=== PATIENT | female | born 1930 | race Caucasian/White ===

== ENCOUNTER 2016-09-12 07:40 | Emergency (ER) | payer MEDICARE, OTHER ==
--- OUTSIDE RECORDS SUMMARY | 2016-09-12 08:17 | XMS REPORT | Continuity of Care Document ---
:1930 Author Organization [facility] ([facility]) Address [address] [place] [address] Phone [phone] Care Team Providers Name Role Phone Ajit Steinberg Primary Care Provider [phone] Source Comments This disclosure is being made pursuant to the Care Everywhere program, applicable federal and state laws, and may not contain all informaitonavailable regarding this patient.[facility] ([facility]) Active Allergies and Adverse Reactions Allergen Noted Date Severity Reactions Comments Sulfa (Sulfonamide Antibiotics) 06/06/2012 OTHER "goes out of head" Current Medications Prescription Sig. Disp. Refills Start Date End Date Status aspirin 81 mg tablet Take 81 mg by mouth Active daily. PEG 400-Propylene Glycol Instill onto the Active (SYSTANE, PF,) 0.4-0.3 % eye. Dpet fluocinoNIDE 0.05 % apply topically 2 Active topical cream times daily. loratadine 10 mg cap Take by mouth. Active hydrOXYzine HCl 25 mg Take 25 mg by mouth Active tablet at bedtime as needed. ASPIRIN/ACETAMINOPHEN/CA Take by mouth. Active FFEINE (EXCEDRIN MIGRAINE PO) omeprazole 40 mg Take 40 mg by mouth Active extended release capsule daily. metoPROLol Take 1 Tab by mouth Active tartrate-hydrochlorothia 2 times daily. zide 50-25 mg per tablet nitroglycerin 0.[address] 0.4 mg under Active tablet the tongue every 5 minutes as needed. carbamide peroxide 5 Drops as needed. Active (DEBROX) 6.5 % otic solution Miconazole Nitrate by Apply externally Active (ZEASORB AF) 2 % GlAl route. rosuvastatin (CRESTOR) Take 10 mg by mouth Active 10 mg tablet every evening. escitalopram 10 mg Take 10 mg by mouth Active tablet daily. ALPRAZolam 0.25 mg Take 0.25 mg by Active tablet mouth 2 times daily as needed. lisinopril 20 mg tablet Take 20 mg by mouth Active daily. Zinc Oxide (DESITIN) 13 by Apply externally Active % Crea route. glipiZIDE 2.5 mg XL Take 2.5 mg by mouth Active tablet daily. Indications: TYPE 2 DIABETES MELLITUS prednisoLONE acetate 1 % instill 1-2 Drops 10 mL 2 09/03/2013 Active ophthalmic suspension onto the right eye 4 times daily. Indications: SEVERE OCULAR INFLAMMATION, cystoid macular edema ketorolac 0.5 % instill 1 Drop onto 5 mL 3 09/03/2013 Active ophthalmic solution the right eye 4 times daily. Indications: cystoid macular edema Active Problems Problem Noted Date Pseudophakia, both eyes 09/03/2013 History of retinopathy of prematurity 09/03/2013 Diabetes mellitus 09/03/2013 Vitreomacular traction 09/03/2013 Diabetes mellitus, type 2 06/10/2012 Overview: No retinopathy Resolved Problems Problem Noted Date Resolved Date Vitreomacular traction syndrome 09/03/2013 09/06/2013 Social History Tobacco Use Types Packs/Day Years Used Date Never Smoker Alcohol Use Drinks/Week oz/Week Comments No Plan of Care Health Maintenance Due Date Last Done Comments Hepatitis B Vaccine (1 of 3 - Primary Series) 1930 Tdap Vaccine 1941 DIABETIC: Cholesterol 1950 Diabetic: Hdl 1950 DIABETIC: Hemoglobin A1C 1950 Diabetic: Ldl 1950 DIABETIC: Microalbumin 1950 DIABETIC: Triglycerides 1950 Td Vaccine 1950 Colonoscopy 1982 Zoster Vaccine 1992 Osteoporosis Screening (DXA Bone Density) 1997 Pneumococcal Vaccine (1 of 2 - PCV13) 1997 DIABETIC: Foot Exam 07/19/2012 DIABETIC: Retinal Eye Exam 07/19/2012 Influenza Vaccine: Seasonal (#1) 02/09/2016 Results from Last 3 Months Not on file
--- OUTSIDE RECORDS SUMMARY | 2016-09-12 08:18 | XMS REPORT | Summary of Care ---
:1930 Author Organization [facility] Address [address] [place] [address] Care Team Providers Name Role Phone Tye Armendariz Primary Care Physician Encounter Date(s): 07/23/16 - 07/23/16 [facility], [address] [place], [place] [address] Discharge Diagnosis: At risk of UTI (urinary tract infection) Discharge Diagnosis: Dysuria Discharge Disposition: 01 Discharged to Home or Self Care Attending Physician: Tye Armendariz MD Referring Physician: Tye Armendariz MD Vital Signs Most recent to oldest [Reference Range]: 1 Temperature Temporal Artery [36.0-38.0 DegC] 36.5 DegC (07/23/16 11:12 AM) Blood Pressure [90-130/60-90 mmHg] 138/86mmHg *HI* (07/23/16 11:12 AM) Mean Arterial Pressure, Cuff 103 mmHg (07/23/16 11:12 AM) Weight Dosing 77.2 kg (07/23/16 11:12 AM) Weight Measured 77.2 kg (07/23/16 11:12 AM) Problem List Condition Effective Dates Status Health Status Informant Anxiety(Confirmed) Active CKD stage 3(Confirmed) Active Diabetes mellitus type 2(Confirmed) Active GERD - Gastro-esophageal reflux Active disease(Confirmed) Hyperlipidemia(Confirmed) Active Hypertension(Confirmed) Active Proteinuria(Confirmed) Active Allergies, Adverse Reactions, Alerts Substance Reaction Severity Status sulfa drugs Confused Active Medications acetaminophen 500 mg oral tablet 2 tab(s), Oral, q4hr, PRN for pain, # 120 tab(s), 0 Refill(s), Start Date: 11/15 8:01:00 CDT Start Date: 11/15/14 Stop Date: 11/18/14 Status: Completedacetaminophen 500 mg oral tablet 1-2 tab, Oral, q4hr, PRN for pain, # 60 tab(s), 0 Refill(s), Start Date: 10:59:00 CDT Start Date: 05/07/15 Status: OrderedAleve 220 mg oral tablet 1 tab(s), Oral, q8hr interval, PRN for pain, # 30 tab(s), 0 Refill(s), Start Date: 07/02/14 14:29:00 VESSEL SLAGMAN Start Date: 07/02/14 Stop Date: 08/13/14 Status: Discontinuedaspirin 81 mg oral tablet 1 tab(s), Oral, Daily, # 30 tab(s), 0 Refill(s), Start Date: 07/02/14 14:29:00 VESSEL SLAGMAN Start Date: 07/02/14 Status: OrderedbusPIRone 7.5 mg oral tablet 1 tab(s), Oral, BID, # 90 tab(s), 0 Refill(s), Start Date: 07/02/14 14:29:00 VESSEL SLAGMAN Start Date: 07/02/14 Stop Date: 01/06/15 Status: Completedcholecalciferol 1000 intl units oral capsule 1 cap(s), Oral, Daily, # 75 cap(s), 0 Refill(s), Start Date: 10/28/14 13:52:00 CDT, Pharmacy: [place], [place] Start Date: 10/28/14 Status: Orderedciprofloxacin 250 mg oral tablet 1 tab(s), Oral, q12hr interval, # 6 tab(s), 0 Refill(s), Start Date: 09/09/14 10 :24:00 VESSEL SLAGMAN, Pharmacy: [place], [place] Start Date: 09/09/14 Stop Date: 11/08/14 Status: Completedciprofloxacin 250 mg oral tablet 1 tab(s), Oral, q12hr interval, # 6 tab(s), 0 Refill(s), Start Date: 09/02/14 12 :44:00 VESSEL SLAGMAN Start Date: 09/02/14 Stop Date: 09/04/14 Status: Completedciprofloxacin 250 mg oral tablet 1 tab(s), Oral, q12hr interval, # 6 tab(s), 0 Refill(s), Start Date: 11/18/14 11 :58:00 CDT Start Date: 11/18/14 Stop Date: 11/18/14 Status: CompletedCrestor 10 mg oral tablet 1 tab(s), Oral, Daily, # 30 tab(s), 0 Refill(s), Start Date: 07/02/14 14:30:00 VESSEL SLAGMAN Start Date: 07/02/14 Status: Orderedergocalciferol 50,000 intl units (1.25 mg) oral capsule 1 cap(s), Oral, qWeek, X 8 week(s), # 8 cap(s), 0 Refill(s), Start Date: 13:52:00 VESSEL SLAGMAN, Pharmacy: [place], [place] Start Date: 08/26/14 Stop Date: 10/21/14 Status: CompletedExcedrin Extra Strength 1-2 tab(s), Oral, q6hr interval, PRN pain mild 1-3, 0 Refill(s), Start Date: 11:01:00 CDT Start Date: 05/07/15 Status: OrderedExcedrin Tension Headache Caplet 500 mg-65 mg oral tablet 1-2 tab(s), Oral, Daily, 0 Refill(s), Start Date: 07/02/14 14:31:00 VESSEL SLAGMAN Start Date: 07/02/14 Stop Date: 08/13/14 Status: DiscontinuedGlipiZIDE XL 2.5 mg oral tablet, extended release 1 tab(s), Oral, Daily, # 30 tab(s), 0 Refill(s), Start Date: 07/02/14 14:32:00 VESSEL SLAGMAN Start Date: 07/02/14 Status: Orderedhydrochlorothiazide 25 mg oral tablet 0.5 tab(s), Oral, Daily, # 30 tab(s), 0 Refill(s), Start Date: 07/02/14 14:33: 00 VESSEL SLAGMAN Start Date: 07/02/14 Stop Date: 05/07/15 Status: CompletedhydrOXYzine hydrochloride 25 mg oral tablet 1 tab(s), Oral, QID, PRN for itching, # 40 tab(s), 0 Refill(s), Start Date: 14:33:00 VESSEL SLAGMAN Start Date: 07/02/14 Stop Date: 08/30/14 Status: DiscontinuedLexapro 20 mg oral tablet 0.5 tab(s), Oral, Daily, # 30 tab(s), 0 Refill(s), Start Date: 07/02/14 14:34: 00 VESSEL SLAGMAN Start Date: 07/02/14 Stop Date: 07/23/16 Status: Completedlisinopril 20 mg oral tablet 1 tab(s), Oral, Daily, # 90 tab(s), 0 Refill(s), Start Date: 08/13/14 11:13:00 VESSEL SLAGMAN, [facility]acy: [facility] [place], [place] Start Date: 08/13/14 Stop Date: 08/14/14 Status: Completedlisinopril 20 mg oral tablet 1 tab(s), Oral, BID, corrected frequency to BID, # 60 tab(s), 3 Refill(s), Start Date: 08/14/14 9:01:10 VESSEL SLAGMAN, Pharmacy: [facility] [place], [place] Start Date: 08/14/14 Stop Date: 01/06/15 Status: Discontinuedlisinopril 40 mg oral tablet 1 tab(s), Oral, Daily, # 30 tab(s), 0 Refill(s), Start Date: 07/02/14 14:34:00 VESSEL SLAGMAN Start Date: 07/02/14 Stop Date: 08/13/14 Status: Discontinuedlisinopril 40 mg oral tablet 1 tab(s), Oral, Daily, # 90 tab(s), 0 Refill(s), Start Date: 01/06/15 11:45:00 CDT, Pharmacy: [facility] [place] [place] Start Date: 01/06/15 Stop Date: 05/07/15 Status: Completedmetoprolol tartrate 50 mg oral tablet 1 tab(s), Oral, BID, # 60 tab(s), 0 Refill(s), Start Date: 07/02/14 14:34:00 VESSEL SLAGMAN Start Date: 07/02/14 Status: Orderednitroglycerin 0.4 mg sublingual tablet 1 tab(s), SL, q5min, PRN for chest pain, # 100 tab(s), 0 Refill(s), Start Date: 07/02/14 14:34:00 VESSEL SLAGMAN Start Date: 07/02/14 Status: OrderedNorco 5 mg-325 mg oral tablet 1 tab(s), Oral, q4hr, PRN for pain, X 3 days, # 18 tab(s), 0 Refill(s), Start Date: 11/18/14 11:58:00 CDT Start Date: 11/18/14 Stop Date: 11/18/14 Status: Completednystatin 1,000,000 units oral capsule 1 cap(s), Oral, BID, # 90 cap(s), 0 Refill(s), Start Date: 01/06/15 11:42:00 CDT Start Date: 01/06/15 Status: Orderednystatin 100,000 units/g topical cream 1 manuel, Topical, BID, PRN rash, # 15 gm, 0 Refill(s), Start Date: 11/15/14 8:03: 00 CDT Start Date: 11/15/14 Stop Date: 11/18/14 Status: Completedomeprazole 40 mg oral delayed release capsule 1 cap(s), Oral, Daily, before a meal, # 30 cap(s), 0 Refill(s), Start Date: 14:35:00 VESSEL SLAGMAN Start Date: 07/02/14 Status: OrderedProbiotic Formula 1 cap(s), Oral, Daily, 0 Refill(s), Start Date: 08/13/14 10:39:00 VESSEL SLAGMAN Start Date: 08/13/14 Stop Date: 07/23/16 Status: CompletedRisperDAL 0.25 mg oral tablet 1 tab(s), Oral, HS, # 30 tab(s), 0 Refill(s), Start Date: 05/07/15 11:02:00 CDT Start Date: 05/07/15 Status: OrderedSystane ophthalmic solution 1 drop(s), OPTH, BID, PRN for dry eyes, # 12 mL, 0 Refill(s), Start Date: 14:35:00 VESSEL SLAGMAN Start Date: 07/02/14 Status: OrderedtraMADol 50 mg oral tablet 2 tab(s), Oral, q6hr interval, PRN abdominal pain, # 30 tab(s), 0 Refill(s), Start Date: 09/02/14 12:44:00 VESSEL SLAGMAN Start Date: 09/02/14 Stop Date: 09/04/14 Status: Completedtrolamine salicylate 10% topical cream 1 manuel, Topical, QID, PRN for pain, # 90 gm, 0 Refill(s), Start Date: 01/06/15 11 :41:00 CDT Start Date: 01/06/15 Status: Orderedtrolamine salicylate 10% topical cream 1 manuel, Topical, QID, PRN for pain, # 90 gm, 0 Refill(s), Start Date: 07/02/14 14 :35:00 VESSEL SLAGMAN Start Date: 07/02/14 Stop Date: 11/18/14 Status: CompletedXanax 0.25 mg oral tablet 1 tab(s), Oral, BID, 0 Refill(s), Start Date: 07/02/14 14:35:00 VESSEL SLAGMAN Start Date: 07/02/14 Status: OrderedZoloft 50 mg oral tablet 1 tab(s), Oral, Daily, # 30 tab(s), 0 Refill(s), Start Date: 07/23/16 11:21:00 VESSEL SLAGMAN Start Date: 07/23/16 Status: Ordered Results No data available for this section Immunizations No data available for this section Procedures Procedure Date Related Diagnosis Body Site Cystoureteroscopy With Lithotripsy (Left)1 11/18/14 Cystoureteroscopy With Lithotripsy (Left)2 09/09/14 Ureteroscopy With Lithotripsy (Left)3 09/02/14 Cataract extraction wrist surgery4 1auto-populated from documented surgical [id number] from documented surgical [id number] from documented surgical [id number] to fracture Social History No data available for this section Assessment and Plan No data available for this section
--- OUTSIDE RECORDS SUMMARY | 2016-09-12 08:18 | XMS REPORT | Summary of Care ---
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 Discharge Diagnosis: Hypertension Discharge Diagnosis: Hypokalemia Discharge Disposition: 01 Discharged to Home or Self Care Attending Physician: Momo Root MD Referring Physician: Momo Root MD Vital Signs Most recent to oldest [Reference Range]: 1 2 Temperature Temporal Artery [36.0-38.0 DegC] 36.3 DegC (08/13/16 11:13 AM) Peripheral Pulse Rate [60-100 bpm] 68 bpm (08/13/16 11:13 AM) Respiratory Rate [12-20 br/min] 20 br/min 62 br/min (08/13/16 11:18 AM) *>HHI* (08/13/16 11:13 AM) Blood Pressure [90-130/60-90 mmHg] 96/62mmHg (08/13/16 11:13 AM) Mean Arterial Pressure, Cuff 73 mmHg (08/13/16 11:13 AM) Most recent to oldest [Reference Range]: 1 2 Height/Length Measured 157.0 cm (08/13/16 11:13 AM) Weight Dosing 75.6 kg (08/13/16 11:13 AM) Weight Measured 75.6 kg (08/13/16 11:13 AM) BSA Measured 1.77 m2 (08/13/16 11:13 AM) Body Mass Index Measured 30.67 kg/m2 (08/13/16 11:13 AM) Problem List Condition Effective Dates Status [...] tab(s), 0 Refill(s), Start Date: 07/02/14 14:29:00 STEM MOUNTER Start Date: 07/02/14 Stop Date: 08/13/14 Status: Discontinuedaspirin 81 mg oral tablet 1 tab(s), Oral, Daily, # 30 tab(s), 0 Refill(s), Start Date: 07/02/14 14:29:00 [facility] MOUNTER Start Date: 07/02/14 Status: OrderedbusPIRone 7.5 mg oral tablet 1 tab(s), Oral, BID, # 90 tab(s), 0 Refill(s), Start Date: 07/02/14 14:29:00 [facility] MOUNTER Start Date: 07/02/14 Stop Date: 01/06/15 Status: Completedcholecalciferol 1000 intl units oral capsule 1 cap(s), Oral, Daily, # 75 cap(s), 0 Refill(s), Start Date: 10/28/14 13:52:00 CDT, Pharmacy: [facility], [place] Start Date: 10/28/14 Status: Orderedciprofloxacin 250 mg oral tablet 1 tab(s), Oral, q12hr interval, # 6 tab(s), 0 Refill(s), Start Date: 09/09/14 10 :24:00 STEM MOUNTER, Pharmacy: [facility] [place], [place] Start Date: 09/09/14 Stop Date: 11/08/14 Status: Completedciprofloxacin 250 mg oral tablet 1 tab(s), Oral, q12hr interval, # 6 tab(s), 0 Refill(s), Start Date: 09/02/14 12 :44:00 STEM MOUNTER Start Date: 09/02/14 Stop Date: 09/04/14 Status: Completedciprofloxacin 250 mg oral tablet 1 tab(s), Oral, q12hr interval, # 6 tab(s), 0 Refill(s), Start Date: 11/18/14 11 :58:00 CDT Start Date: 11/18/14 Stop Date: 11/18/14 Status: CompletedCrestor 10 mg oral tablet 1 tab(s), Oral, Daily, # 30 tab(s), 0 Refill(s), Start Date: 07/02/14 14:30:00 STEM MOUNTER Start Date: 07/02/14 Status: Orderedergocalciferol 50,000 intl units (1.25 mg) oral capsule 1 cap(s), Oral, qWeek, X 8 week(s), # 8 cap(s), 0 Refill(s), Start Date: 13:52:00 STEM MOUNTER, Pharmacy: [facility] [place], [place] Start Date: 08/26/14 Stop Date: 10/21/14 Status: CompletedExcedrin Extra Strength 1-2 tab(s), Oral, q6hr interval, PRN pain mild 1-3, 0 Refill(s), Start Date: 11:01:00 CDT Start Date: 05/07/15 Status: OrderedExcedrin Tension Headache Caplet 500 mg-65 mg oral tablet 1-2 tab(s), Oral, Daily, 0 Refill(s), Start Date: 07/02/14 14:31:00 STEM MOUNTER Start Date: 07/02/14 Stop Date: 08/13/14 Status: DiscontinuedGlipiZIDE XL 2.5 mg oral tablet, extended release 1 tab(s), Oral, Daily, # 30 tab(s), 0 Refill(s), Start Date: 07/02/14 14:32:00 STEM MOUNTER Start Date: 07/02/14 Status: Orderedhydrochlorothiazide 25 mg oral tablet 0.5 tab(s), Oral, Daily, # 30 tab(s), 0 Refill(s), Start Date: 07/02/14 14:33: 00 [facility] MOUNTER Start Date: 07/02/14 Stop Date: 05/07/15 Status: CompletedhydrOXYzine hydrochloride 25 mg oral tablet 1 tab(s), Oral, QID, PRN for itching, # 40 tab(s), 0 Refill(s), Start Date: 14:33:00 STEM MOUNTER Start Date: 07/02/14 Stop Date: 08/30/14 Status: DiscontinuedLexapro 20 mg oral tablet 0.5 tab(s), Oral, Daily, # 30 tab(s), 0 Refill(s), Start Date: 07/02/14 14:34: 00 [facility]OUNTER Start Date: 07/02/14 Stop Date: 07/23/16 Status: Completedlisinopril 20 mg oral tablet 1 tab(s), Oral, Daily, # 90 tab(s), 0 Refill(s), Start Date: 08/13/14 11:13:00 STEM MOUNTER, Pharmacy: [place], [place] Start Date: 08/13/14 Stop Date: 08/14/14 Status: Completedlisinopril 20 mg oral tablet 1 tab(s), Oral, BID, corrected frequency to BID, # 60 tab(s), 3 Refill(s), Start Date: 08/14/14 9:01:10 STEM MOUNTER, Pharmacy: [place], [place] Special Instructions: corrected frequency to BID Start Date: 08/14/14 Stop Date: 01/06/15 Status: Discontinuedlisinopril 40 mg oral tablet 1 tab(s), Oral, Daily, # 30 tab(s), 0 Refill(s), Start Date: 07/02/14 14:34:00 STEM MOUNTER Start Date: 07/02/14 Stop Date: 08/13/14 Status: Discontinuedlisinopril 40 mg oral tablet 1 tab(s), Oral, Daily, # 90 tab(s), 0 Refill(s), Start Date: 01/06/15 11:45:00 CDT, [place] Start Date: 01/06/15 Stop Date: 05/07/15 Status: Completedmetoprolol tartrate 50 mg oral tablet 1 tab(s), Oral, BID, # 60 tab(s), 0 Refill(s), Start Date: 07/02/14 14:34:00 STEM MOUNTER Start Date: 07/02/14 Status: Orderednitroglycerin 0.4 mg sublingual tablet 1 tab(s), SL, q5min, PRN for chest pain, # 100 tab(s), 0 Refill(s), Start Date: 07/02/14 14:34:00 STEM MOUNTER Start Date: 07/02/14 Status: OrderedNorco 5 mg-325 [...] 30 cap(s), 0 Refill(s), Start Date: 14:35:00 STEM MOUNTER Special Instructions: before a meal Start Date: 07/02/14 Status: Orderedpotassium chloride 20 mEq oral tablet, extended release 1 tab(s), Oral, BID, # 180 tab(s), 3 Refill(s), Start Date: 08/13/16 11:54:00 STEM MOUNTER, [facility] [place] [place] Start Date: 08/13/16 Status: Orderedpotassium chloride 99 mg oral tablet 1 tab(s), Oral, TID, # 50 tab(s), 0 Refill(s), Start Date: 08/11/16 10:55:00 STEM MOUNTER , [facility] [place] [place] Start Date: 08/11/16 Stop Date: 08/13/16 Status: DiscontinuedProbiotic Formula 1 cap(s), Oral, Daily, 0 Refill(s), Start Date: 08/13/14 10:39:00 STEM MOUNTER Start Date: 08/13/14 Stop Date: 07/23/16 Status: CompletedRisperDAL 0.25 mg oral tablet 1 tab(s), Oral, HS, # 30 tab(s), 0 Refill(s), Start Date: 05/07/15 11:02:00 CDT Start Date: 05/07/15 Status: OrderedSystane ophthalmic solution 1 drop(s), OPTH, BID, PRN for dry eyes, # 12 mL, 0 Refill(s), Start Date: 14:35:00 [facility] MOUNTER Start Date: 07/02/14 Status: OrderedtraMADol 50 mg oral tablet 2 tab(s), Oral, q6hr interval, PRN abdominal pain, # 30 tab(s), 0 Refill(s), Start Date: 09/02/14 12:44:00 [facility] MOUNTER Start Date: 09/02/14 Stop Date: 09/04/14 Status: Completedtrolamine salicylate 10% topical cream 1 manuel, Topical, QID, PRN for pain, # 90 gm, 0 Refill(s), Start Date: 01/06/15 11 :41:00 CDT Start Date: 01/06/15 Status: Orderedtrolamine salicylate 10% topical cream 1 manuel, Topical, QID, PRN for pain, # 90 gm, 0 Refill(s), Start Date: 07/02/14 14 :35:00 STEM MOUNTER Start Date: 07/02/14 Stop Date: 11/18/14 Status: CompletedXanax 0.25 mg oral tablet 1 tab(s), Oral, BID, 0 Refill(s), Start Date: 07/02/14 14:35:00 [facility] MOUNTER Start Date: 07/02/14 Status: OrderedZoloft 50 mg oral tablet 1 tab(s), Oral, Daily, # 30 tab(s), 0 Refill(s), Start Date: 07/23/16 11:21:00 [facility] MOUNTER Start Date: 07/23/16 Status: Ordered Results No data available for this section Immunizations No data available for this section Procedures Procedure Date Related Diagnosis Body Site Cystoureteroscopy With Lithotripsy (Left)1 11/18/14 Cystoureteroscopy With Lithotripsy (Left)2 09/09/14 Ureteroscopy With Lithotripsy (Left)3 09/02/14 Cataract extraction wrist surgery4 1auto-populated from documented surgical [id number] from documented surgical [id number] from documented surgical [id number] to fracture Social History No data available for this section Assessment and Plan No data available for this section
--- OUTSIDE RECORDS SUMMARY | 2016-09-12 08:19 | XMS REPORT | Summary of Care ---
:1930 Author Organization [facility] Address [address] [place] [id number]- Care Team Providers Name Role Phone Ajit Steinberg Primary Care Physician Encounter Date(s): 08/13/16 - 08/13/[address] [id number] Discharge Disposition: 01 Discharged to Home or Self Care Attending Physician: Momo Root MD Admitting Physician: Momo Root MD Vital Signs No data available for this section Problem List Condition Effective Dates Status Health [...] tab(s), 0 Refill(s), Start Date: 07/02/14 14:29:00 DRIVE TESTER Start Date: 07/02/14 Stop Date: 08/13/14 Status: Discontinuedaspirin 81 mg oral tablet 1 tab(s), Oral, Daily, # 30 tab(s), 0 Refill(s), Start Date: 07/02/14 14:29:00 DRIVE TESTER Start Date: 07/02/14 Status: OrderedbusPIRone 7.5 mg oral tablet 1 tab(s), Oral, BID, # 90 tab(s), 0 Refill(s), Start Date: 07/02/14 14:29:00 DRIVE TESTER Start Date: 07/02/14 Stop Date: 01/06/15 Status: Completedcholecalciferol 1000 intl units oral capsule 1 cap(s), Oral, Daily, # 75 cap(s), 0 Refill(s), Start Date: 10/28/14 13:52:00 CDT, Pharmacy: [place], [place] Start Date: 10/28/14 Status: Orderedciprofloxacin 250 mg oral tablet 1 tab(s), Oral, q12hr interval, # 6 tab(s), 0 Refill(s), Start Date: 09/09/14 10 :24:00 DRIVE TESTER, Pharmacy: [place], [place] Start Date: 09/09/14 Stop Date: 11/08/14 Status: Completedciprofloxacin 250 mg oral tablet 1 tab(s), Oral, q12hr interval, # 6 tab(s), 0 Refill(s), Start Date: 09/02/14 12 :44:00 DRIVE TESTER Start Date: 09/02/14 Stop Date: 09/04/14 Status: Completedciprofloxacin 250 mg oral tablet 1 tab(s), Oral, q12hr interval, # 6 tab(s), 0 Refill(s), Start Date: 11/18/14 11 :58:00 CDT Start Date: 11/18/14 Stop Date: 11/18/14 Status: CompletedCrestor 10 mg oral tablet 1 tab(s), Oral, Daily, # 30 tab(s), 0 Refill(s), Start Date: 07/02/14 14:30:00 DRIVE TESTER Start Date: 07/02/14 Status: Orderedergocalciferol 50,000 intl units (1.25 mg) oral capsule 1 cap(s), Oral, qWeek, X 8 week(s), # 8 cap(s), 0 Refill(s), Start Date: 13:52:00 DRIVE TESTER, [place] Start Date: 08/26/14 Stop Date: 10/21/14 Status: CompletedExcedrin Extra Strength 1-2 tab(s), Oral, q6hr interval, PRN pain mild 1-3, 0 Refill(s), Start Date: 11:01:00 CDT Start Date: 05/07/15 Status: OrderedExcedrin Tension Headache Caplet 500 mg-65 mg oral tablet 1-2 tab(s), Oral, Daily, 0 Refill(s), Start Date: 07/02/14 14:31:00 DRIVE TESTER Start Date: 07/02/14 Stop Date: 08/13/14 Status: DiscontinuedGlipiZIDE XL 2.5 mg oral tablet, extended release 1 tab(s), Oral, Daily, # 30 tab(s), 0 Refill(s), Start Date: 07/02/14 14:32:00 DRIVE TESTER Start Date: 07/02/14 Status: Orderedhydrochlorothiazide 25 mg oral tablet 0.5 tab(s), Oral, Daily, # 30 tab(s), 0 Refill(s), Start Date: 07/02/14 14:33: 00 DRIVE TESTER Start Date: 07/02/14 Stop Date: 05/07/15 Status: CompletedhydrOXYzine hydrochloride 25 mg oral tablet 1 tab(s), Oral, QID, PRN for itching, # 40 tab(s), 0 Refill(s), Start Date: 14:33:00 DRIVE TESTER Start Date: 07/02/14 Stop Date: 08/30/14 Status: DiscontinuedLexapro 20 mg oral tablet 0.5 tab(s), Oral, Daily, # 30 tab(s), 0 Refill(s), Start Date: 07/02/14 14:34: 00 DRIVE TESTER Start Date: 07/02/14 Stop Date: 07/23/16 Status: Completedlisinopril 20 mg oral tablet 1 tab(s), Oral, Daily, # 90 tab(s), 0 Refill(s), Start Date: 08/13/14 11:13:00 DRIVE TESTER, [facility] [place] Start Date: 08/13/14 Stop Date: 08/14/14 Status: Completedlisinopril 20 mg oral tablet 1 tab(s), Oral, BID, corrected frequency to BID, # 60 tab(s), 3 Refill(s), Start Date: 08/14/14 9:01:10 DRIVE TESTER, [facility] [place] Special Instructions: corrected frequency to BID Start Date: 08/14/14 Stop Date: 01/06/15 Status: Discontinuedlisinopril 40 mg oral tablet 1 tab(s), Oral, Daily, # 30 tab(s), 0 Refill(s), Start Date: 07/02/14 14:34:00 DRIVE TESTER Start Date: 07/02/14 Stop Date: 08/13/14 Status: Discontinuedlisinopril 40 mg oral tablet 1 tab(s), Oral, Daily, # 90 tab(s), 0 Refill(s), Start Date: 01/06/15 11:45:00 CDT, [facility] [place] [place] Start Date: 01/06/15 Stop Date: 05/07/15 Status: Completedmetoprolol tartrate 50 mg oral tablet 1 tab(s), Oral, BID, # 60 tab(s), 0 Refill(s), Start Date: 07/02/14 14:34:00 DRIVE TESTER Start Date: 07/02/14 Status: Orderednitroglycerin 0.4 mg sublingual tablet 1 tab(s), SL, q5min, PRN for chest pain, # 100 tab(s), 0 Refill(s), Start Date: 07/02/14 14:34:00 DRIVE TESTER Start Date: 07/02/14 Status: OrderedNorco 5 mg-325 [...] 30 cap(s), 0 Refill(s), Start Date: 14:35:00 DRIVE TESTER Special Instructions: before a meal Start Date: 07/02/14 Status: Orderedpotassium chloride 20 mEq oral tablet, extended release 1 tab(s), Oral, BID, # 180 tab(s), 3 Refill(s), Start Date: 08/13/16 11:54:00 DRIVE TESTER, [facility]acy: [facility] [place], [place] Start Date: 08/13/16 Status: Orderedpotassium chloride 99 mg oral tablet 1 tab(s), Oral, TID, # 50 tab(s), 0 Refill(s), Start Date: 08/11/16 10:55:00 DRIVE TESTER , Pharmacy: [facility] [place] [place] Start Date: 08/11/16 Stop Date: 08/13/16 Status: DiscontinuedProbiotic Formula 1 cap(s), Oral, Daily, 0 Refill(s), Start Date: 08/13/14 10:39:00 DRIVE TESTER Start Date: 08/13/14 Stop Date: 07/23/16 Status: CompletedRisperDAL 0.25 mg oral tablet 1 tab(s), Oral, HS, # 30 tab(s), 0 Refill(s), Start Date: 05/07/15 11:02:00 CDT Start Date: 05/07/15 Status: OrderedSystane ophthalmic solution 1 drop(s), OPTH, BID, PRN for dry eyes, # 12 mL, 0 Refill(s), Start Date: 14:35:00 DRIVE TESTER Start Date: 07/02/14 Status: OrderedtraMADol 50 mg oral tablet 2 tab(s), Oral, q6hr interval, PRN abdominal pain, # 30 tab(s), 0 Refill(s), Start Date: 09/02/14 12:44:00 DRIVE TESTER Start Date: 09/02/14 Stop Date: 09/04/14 Status: Completedtrolamine salicylate 10% topical cream 1 manuel, Topical, QID, PRN for pain, # 90 gm, 0 Refill(s), Start Date: 01/06/15 11 :41:00 CDT Start Date: 01/06/15 Status: Orderedtrolamine salicylate 10% topical cream 1 manuel, Topical, QID, PRN for pain, # 90 gm, 0 Refill(s), Start Date: 07/02/14 14 :35:00 DRIVE TESTER Start Date: 07/02/14 Stop Date: 11/18/14 Status: CompletedXanax 0.25 mg oral tablet 1 tab(s), Oral, BID, 0 Refill(s), Start Date: 07/02/14 14:35:00 DRIVE TESTER Start Date: 07/02/14 Status: OrderedZoloft 50 mg oral tablet 1 tab(s), Oral, Daily, # 30 tab(s), 0 Refill(s), Start Date: 07/23/16 11:21:00 DRIVE TESTER Start Date: 07/23/16 Status: Ordered Results Patient Viewable Results Most recent to oldest [Reference Range]: 1 WBC [4.8-10.8 thou/mm3] 11.3 thou/mm3 *HI* (08/13/16 10:53 AM) RBC [4.20-5.40 Mil/mm3] 4.15 Mil/mm3 *LOW* (08/13/16 10:53 AM) Hgb [12.0-16.0 g/dL] 12.6 g/dL (08/13/16 10:53 AM) Hct [37.0-47.0 %] 36.6 % *LOW* (08/13/16 10:53 AM) MCV [80.0-94.0 fL] 88.2 fL (08/13/16 10:53 AM) MCH [25.0-38.0 pg/cell] 30.4 pg/cell (08/13/16 10:53 AM) MCHC [31.0-37.0 g/dL] 34.4 g/dL (08/13/16 10:53 AM) RDW [1.0-48.0 fL] 50.5 fL *HI* (08/13/16 10:53 AM) Platelet [130-400 thou/mm3] 343 thou/mm3 (08/13/16 10:53 AM) Neutrophils % Auto [50.0-75.0 %] 56.7 % (08/13/16 10:53 AM) Immature Granulocyte Auto [0.1-2.0 %] 0.3 % (08/13/16 10:53 AM) Lymphocytes % Auto [15.0-41.0 %] 31.8 % (08/13/16 10:53 AM) Monocytes % Auto [2.0-10.0 %] 6.9 % (08/13/16 10:53 AM) Eosinophils % Auto [0.0-6.0 %] 3.9 % (08/13/16 10:53 AM) Basophil % Auto [0.0-1.0 %] 0.4 % (08/13/16 10:53 AM) Neutrophils Absolute [1.5-5.9 thou/mm3] 6.4 thou/mm3 *HI* (08/13/16 10:53 AM) Immature Gran Absolute [0.01-0.03 thou/mm3] 0.03 thou/mm3 (08/13/16 10:53 AM) Lymphocytes Absolute [1.5-4.0 thou/mm3] 3.6 thou/mm3 (08/13/16 10:53 AM) Monocytes Absolute [0.0-0.9 thou/mm3] 0.8 thou/mm3 (08/13/16 10:53 AM) Eosinophil Absolute [0.0-0.7 thou/mm3] 0.4 thou/mm3 (08/13/16 10:53 AM) Basophil Absolute [0.0-0.2 thou/mm3] 0.0 thou/mm3 (08/13/16 10:53 AM) Sodium Lvl [135-144 mEq/L] 143 mEq/L (08/13/16 10:53 AM) Potassium Lvl [3.3-4.8 mEq/L] 2.4 mEq/L1 *CRIT* (08/13/16 10:53 AM) Chloride Lvl [98-107 mEq/L] 99 mEq/L (08/13/16 10:53 AM) Bicarbonate Lvl [22-30 mmol/L] 30 mmol/L (08/13/16 10:53 AM) Anion Gap [10.0-20.0] 16.4 (08/13/16 10:53 AM) Glucose Lvl [70-108 mg/dL] 146 mg/dL *HI* (08/13/16 10:53 AM) BUN [7-21 mg/dL] 12 mg/dL (08/13/16 10:53 AM) Creatinine Lvl [0.50-1.20 mg/dL] 1.50 mg/dL *HI* (08/13/16 10:53 AM) BUN/Creat Ratio 8.0 *NA* (08/13/16 10:53 AM) eGFR AA [>=60] 40 *LOW* (08/13/16 10:53 AM) eGFR MATTHEW [>=60] 33 *LOW* (08/13/16 10:53 AM) Calcium Lvl [8.6-10.2 mg/dL] 8.7 mg/dL (08/13/16 10:53 AM) PTH, Intact [14-72 pg/mL] 576 pg/mL *HI* (08/13/16 10:53 AM) Vitamin D 25 OH [20-100 ng/mL] 26 ng/mL (08/13/16 10:53 AM) Albumin Lvl [3.5-5.2 g/dL] 3.5 g/dL (08/13/16 10:53 AM) Magnesium Lvl [1.6-2.4 mg/dL] 1.8 mg/dL (08/13/16 10:55 AM) Phosphorus Lvl [2.7-4.5 mg/dL] 2.0 mg/dL *LOW* (08/13/16 10:53 AM) FE [50-170 mcg/dL] 82 mcg/dL (08/13/16 10:53 AM) Iron Binding Capacity, Total [228-428 mcg/dL] 239 mcg/dL (08/13/16 10:53 AM) % Iron Saturation [20-50 %] 34 % (08/13/16 10:53 AM) Ferritin Lvl [10-291 ng/mL] 120 ng/mL (08/13/16 10:53 AM) Potassium, Shafer Ur 9.8 mEq/L *NA* (08/13/16 10:55 AM) Total Protein, Urine [1-14 mg/dL] 26 mg/dL *HI* (08/13/16 10:55 AM) Creatinine, Urine 56.5 mg/dL *NA* (08/13/16 10:55 AM) Ur TP/CRE Ratio 460 mg/g *NA* (08/13/16 10:55 AM) Estimated Creatinine Clearance 26.46 mL/min (08/13/16 12:01 PM) UA Color Yellow *NA* (08/13/16 10:55 AM) Urine Clarity Clear *NA* (08/13/16 10:55 AM) Specific [place] [1.000-1.060] 1.008 (08/13/16 10:55 AM) Urine pH [5-8] 7 (08/13/16 10:55 AM) Ketones Negative (08/13/16 10:55 AM) Bilirubin [Negative] Negative (08/13/16 10:55 AM) Urine Protein [Negative] Negative (08/13/16 10:55 AM) Glucose [Negative] Negative (08/13/16 10:55 AM) Urine HGB [Negative] 1+ *ABN* (08/13/16 10:55 AM) Urobilinogen <2.0 *NA* (08/13/16 10:55 AM) Nitrite [Negative] Negative (08/13/16 10:55 AM) Leuk Esterase [Negative] Negative (08/13/16 10:55 AM) UA Ascorbic Acid [Negative] Negative (08/13/16 10:55 AM) Urine WBC [0-5] 0-5 (08/13/16 10:55 AM) Urine RBC [0-2] 0-2 (08/13/16 10:55 AM) Squamous Epi [0-5] 0-5 (08/13/16 10:55 AM) 1Result Comment: Verified Results called to and read back by VEORNICA at 2016 11:52:[address] by Immunizations No data available for this section Procedures Procedure Date Related Diagnosis Body Site Cystoureteroscopy With Lithotripsy (Left)1 11/18/14 Cystoureteroscopy With Lithotripsy (Left)2 09/09/14 Ureteroscopy With Lithotripsy (Left)3 09/02/14 Cataract extraction wrist surgery4 1auto-populated from documented surgical [id number] from documented surgical [id number] from documented surgical [id number] to fracture Social History No data available for this section Assessment and Plan No data available for this section
[2016-09-12 08:31] LABS: Hematocrit 46.3 % (37.0-47.0); Hemoglobin 15.3 gm/dL (12.5-16.0); Mean Cell Volume 91.7 fl (78-100); Mean Corpuscular Hemoglobin 30.3 pg (27-31); Mean Platelet Volume 9.8 fl (6.0-9.5); Platelet Count 357 K/mm3 (150-450); Red Blood Count 5.05 M/mm3 (4.2-5.4); White Blood Count 21.2 K/mm3 (4.0-10.5)
[2016-09-12 08:34] LABS: Total Cells Counted 100
[2016-09-12 08:41] LABS: Prothrombin Time (Patient) 11.2 Seconds (9.4-11.4)
[2016-09-12 08:44] LABS: INR 1.08 INR (0.90-1.10); Partial Thrombolplastin Time 26.6 Seconds (24-32)
[2016-09-12 08:52] LABS: Atypical (Reactive) Lymph 5 % (0-2); Lymphocyte 5 % (20-51); Monocyte 9 % (0-9); Neutrophil 81 % (42-75); Neutrophil # 17.2 K/mm3 (1.3-6.0)
[2016-09-12 08:54] LABS: Platelet Estimate Normal (NORMAL)
[2016-09-12 08:55] LABS: RBC Morphology Normal (NORMAL)
[2016-09-12 09:00] LABS: ALT 31 U/L (19-67); AST 30 U/L (0-48); Albumin * 4.2 gm/dl (3.4-5.0); Alkaline Phosphatase * 191 U/L (50-170); Anion Gap 23.9 mmol/L (6.8-13.8); BUN/Creatinine Ratio 13.7 (9.0-21.6); Bilirubin, Total 0.4 mg/dL (0.0-1.1); Blood Urea Nitrogen 38 mg/dL (3-23); Calcium * 10.5 mg/dL (7.9-10.9); Carbon Dioxide 15.3 mmol/L (24-32.6); Chloride 101 mmol/L (97-106); Glucose * 114 mg/dL (70-110); Sodium 131 mmol/L (132-142); Total Protein 8.7 gm/dL (6.2-8.2); Troponin I Less than 0.017 ng/ml (0.00-0.10)
[2016-09-12 09:02] LABS: Potassium 9.2 mmol/L (3.4-4.6)
[2016-09-12] MEDS ORDERED: SODIUM CHLORIDE IV ONE (09:04)
[2016-09-12] MEDS ORDERED: INSULIN REGULAR, HUMAN 100 UNITS/ML VIAL SC ONE (09:05)
[2016-09-12] MEDS ORDERED: ALBUTEROL SULFATE 2.5 MG/0.5 ML VIAL.NEB IH ONE ×2 (09:05→09:26)
[2016-09-12] MEDS ORDERED: DEXTROSE 50%-WATER 50 ML SYRG IV ONE (09:05)
[2016-09-12] MEDS ORDERED: SODIUM POLYSTYRENE SULFON/SORB 15 G/60 ML BTL PO ONE (09:08)
[2016-09-12] MEDS ORDERED: SODIUM POLYSTYRENE SULFON/SORB 15 G/60 ML BTL ONE (09:15)
[2016-09-12] MEDS ORDERED: DEXTROSE 50%-WATER 50 ML SYRG ONE (09:16)
[2016-09-12] MEDS ORDERED: INSULIN REGULAR, HUMAN 100 UNITS/ML VIAL ONE (09:16)
--- NOTE | 2016-09-12 09:17 | ERNOTE ---
Medical Problem HPI - Narrative Date of Service: 09/12/16 - General Chief Complaint: General Assessment Time Seen by Provider: 09/12/16 08:08 Source: patient, RN/MD, EMS Exam Limitations: physical impairment - Hx of Dementia - Immun/Allergies/Home Medications Immunizations: IMMUNIZATION HX Immunizations Up to Date Yes History of Influenza Vaccine Yes Hx Pneumococcal Vaccination Yes Allergies/Adverse Reactions: Allergies Sulfa (Sulfonamide Antibiotics) Adverse Reaction (Mild, Verified 09/12/16 07:53) MAKES HER "LOOPY" Home Medications: HOME MEDICATIONS Aspirin [Aspirin Chewable] 81 mg PO DAILY 06/25/13 [Last Taken Unknown] Glipizide [Glipizide Xl] 2.5 mg PO DAILY 06/25/13 [Last Taken Unknown] Lisinopril 20 mg PO BID 06/25/13 [Last Taken Unknown] Metoprolol Tartrate [Lopressor] 50 mg PO BID 06/25/13 [Last Taken Unknown] Nitroglycerin 0.4 mg SL Q5M PRN 06/25/13 [Last Taken Unknown] Omeprazole [Prilosec] 40 mg PO DAILY 06/25/13 [Last Taken Unknown] Blood Sugar Diagnostic, Drum [Accu-Chek Compact] 1 each MC DAILY 09/12/14 [Last Taken Unknown] ALPRAZolam [Xanax] 0.25 mg PO BID 11/25/14 [Last Taken Unknown] B.ani/L.aci/L.aminah/L.plan/L.ginette [Probiotic Formula Capsule] 1 each PO DAILY 11/25 [Last Taken Unknown] Cholecalciferol (Vitamin D3) [Vitamin D] 1,000 unit PO DAILY 11/25/14 [Last Taken Unknown] Propylene Glycol/Peg 400 [Systane Liquid Gel Eye Drops] 1 drop OP BID PRN [Last Taken Unknown] Escitalopram Oxalate [Lexapro] 10 mg PO DAILY 09/12/16 [Last Taken Unknown] Rosuvastatin Calcium [Crestor] 10 mg PO DAILY 09/12/16 [Last Taken Unknown] risperiDONE [Risperdal] 0.25 mg PO DAILY 09/12/16 [Last Taken Unknown] - History of Present History Narrative: Patient comes from home by EMS. Patient was found on the ground for an unknown period of time. Patient was reported with LOC. Last time seem well was last night. Patient at the moment is alone with no family or any home day care provider. Patient reported L hip pain on evaluation. Patient with no Hx of Chest Pain. Timing: constant Severity: moderate Modifying Factors - (Improves): Present: other - nothing Modifying Factors - (Worsens): Present: movement - L Hip and Back Area Review of Systems - Review of Systems Constitutional: Present: weakness, malaise. Absent: fever, chills EYE: Present: no symptoms reported ENT: Present: no symptoms reported Respiratory: Present: cough Cardiology: Present: syncope. Absent: chest pain, palpitations, edema, claudication Gastrointestinal/Abdominal: Absent: nausea, vomiting, diarrhea, abdominal pain Genitourinary: Present: no symptoms reported Musculoskeletal: Present: muscle stiffness - Lower Back area, joint pain - L Hip Pain and Mid and Lower Back area Neurological: Present: anxiety, other - Hx of Dementia. Absent: headache, seizure, tremors Endocrine: Present: other - Not reported Hematologic/Lymphatic: Present: no symptoms reported Psych: Present: no symptoms reported All Other Systems: All systems neg except as marked - Patient's Past Medical History Patient History - Medical: Anxiety, Diabetes Type 2, Dementia, Depression, GERD Patient History - Cardiac/Respiratory: Hypertension, Hyperlipidemia Patient History - Cancer: No Hx of Cancer Patient History - Other: None LMP (females 10-50): Menopausal - Social History Living Situations: home Abuse History: No History of abuse Psych History: Hx of Anxiety, Hx of Depression, Current tx/ever been on anti- depressants or anti-anxiety meds Smoking Status: Former smoker Alcohol Use: none Drug Use: none - Immunizations Immunizations Up to Date: Yes Hx Pneumococcal Vaccination: Yes History of Influenza Vaccine: Yes Physical Exam - Physical Exam General Appearance: Present: alert, no apparent distress, anxious. Absent: obese Eye Exam: Normal inspection: bilateral, PERRL: bilateral, EOMI: bilateral Ears, Nose, Throat: Present: normal ENT inspection, dry mucous membranes Neck: Present: normal inspection, nontender, full range of motion Respiratory: Present: no respiratory distress, normal breath sounds, no accessory muscle use, chest nontender, lungs clear Cardiovascular/Chest: Present: regular rate, rhythm, normal peripheral pulses, systolic murmur - 3/6 Gastrointestinal/Abdominal: Present: normal bowel sounds, nontender, nondistended, soft, no organomegaly Back Exam: Present: no CVA tenderness, vertebral tenderness - lower spine, no step offs scoliosis noticed, decreased range of motion, muscle spasm Extremity Exam: Present: normal inspection, normal range of motion, no edema, bony tenderness - L Hip area on movement and on palpations Neurological Exam: Present: alert, oriented - Taken in consideration her Hx of Dementia, normal mood/affect, no motor/sensory deficits, other - GCS: 15/15, NIH Stroke Scale: 0 Skin Exam: Present: normal color, warm/dry Lymphatic Exam: Present: no adenopathy ED Progress - Date and Time Seen: Date and Time: 09/12/16 09:29 Patient at the moment has been found to be septic, dehydration and hyperkalemia. Tx for hyperkalemia has been given. Patient with no Fx no pneumonia, and pending UA. Patient will need nephrology service. Patient will be transfer to a facility with nephrology. 09/12/16 09:40 I had presented case to Dr. Turner at [facility]. Case has been accepted. - Results and Orders Patient's Lab Results:: I have reviewed the patient's lab results. Results and Orders: CBC: Elevated WBC CMP: Renal failure and Hypekalemia, increase BUN and Creat Trop: Negative LA: Elevated UA: - Vital Signs Patient's Vital Signs:: I have reviewed the patient's vital signs. Vital Signs: Vital Signs 09/12/16 07:44 Temperature 36.1 C L Pulse Rate 97 Respiratory 15 Rate Blood Pressure 133/78 O2 Sat by Pulse 95 Oximetry - EKG EKG: NSR, RBBB, other - peaked T waves EKG Comments: HR: 90, QT/QTc: Normal, LAD, LVH - X-Ray X-Ray #1 X-Ray: chest X-ray Comments: No acute process reported by Radiologist X-Ray #2 X-Ray: l-spine X-ray Comments: No Fx reported by Radiologist X-Ray #3 X-Ray: t-spine X-ray Comments: No Fx reported by Radiologist X-Ray #4 X-Ray: pelvis and L hip X-ray Comments: No Fx reported by Radiologist - CT/Ultrasound CT/Ultrasound Narrative: Report by Radiologist: No acute intracranial abnormality identified - Progress/Reassessment Chief Complaint: General Assessment Progress:: Improved - Transfer of Care Expected Disposition: Transfer Departure - Departure Clinical Impression: Dehydration, Hyperkalemia Sepsis Qualifiers: Sepsis type: sepsis due to unspecified organism Qualified Code(s): A41.9 - Sepsis, unspecified organism Protein in urine Qualifiers: Proteinuria type: unspecified Qualified Code(s): R80.9 - Proteinuria, unspecified Disposition: [facility] Condition: Fair
[2016-09-12 09:40] LABS: Urine Bilirubin 1 mg/dl (NEGATIVE); Urine Ketone Negative (NEGATIVE); Urine Nitrite Negative (NEGATIVE); Urine Protein 15 mg/dL (NEGATIVE); Urine Specific Gravity >=1.030 SP.GR. (1.005-1.010); Urine Urobilinogen Normal (NORMAL); Urine pH 5.5 pH (5.0-7.0)
[2016-09-12] MEDS ORDERED: LEVOFLOXACIN/D5W 750 MG/150 ML BAG IV SCH (09:45)
[2016-09-12 10:01] LABS: Urine Appearance Clear; Urine Bacteria None Seen; Urine Blood 10 /ul (NEGATIVE); Urine Color Yellow; Urine RBC TRACE /hpf (0-5); Urine WBC None Seen /hpf (0-5)
[2016-09-12 10:02] LABS: Urine Amorphous Sediment Few - 1+ (NONE-FEW)
[2016-09-12 10:25] VITALS: BP 161/81
== END 2016-09-12 10:43 | disposition short-term general hospital (02) ==
LOC: ER 07:40
DX: E86.0 Dehydration (principal); E87.5 Hyperkalemia; A41.9 Sepsis, unspecified organism; R80.9 Proteinuria, unspecified; F41.8 Other specified anxiety disorders; K21.9 Gastro-esophageal reflux disease without esophagitis; E11.9 Type 2 diabetes mellitus without complications; I10 Essential (primary) hypertension

== ENCOUNTER 2016-11-07 14:39 | Inpatient (IN) | payer MEDICARE, OTHER ==
[2016-11-07 15:08] LABS: Hematocrit 40.4 % (37.0-47.0); Hemoglobin 13.3 gm/dL (12.5-16.0); Mean Cell Volume 90.2 fl (78-100); Mean Corpuscular Hemoglobin 29.7 pg (27-31); Mean Corpuscular Hgb Conc 32.9 g/dl (32-36); Mean Platelet Volume 9.9 fl (6.0-9.5); Neutrophil # 7.6 K/mm3 (1.3-6.0); Neutrophil % 68.3 % (42-75.0); Platelet Count 550 K/mm3 (150-450); Red Blood Count 4.48 M/mm3 (4.2-5.4); Red Cell Distribution Width 13.5 % (11.5-14.0); White Blood Count 11.2 K/mm3 (4.0-10.5)
[2016-11-07 15:18] LABS: Prothrombin Time (Patient) 11.3 Seconds (9.4-11.4)
[2016-11-07 15:19] LABS: INR 1.09 INR (0.90-1.10); Partial Thrombolplastin Time 22.5 Seconds (24-32)
--- NOTE | 2016-11-07 15:23 | ERNOTE ---
Neuro HPI ER Record Presenting Symptoms: facial droop, impaired speech, confusion Time Seen by Provider: 11/07/16 14:44 Source: EMS Exam Limitations: clinical condition Immunizations: IMMUNIZATION HX Immunizations Up to Date Yes History of Influenza Vaccine Yes Hx Pneumococcal Vaccination Yes Allergies/Adverse Reactions: Allergies Allergy/AdvReac Type Severity Reaction Status Date / Time Sulfa (Sulfonamide AdvReac Mild MAKES HER Verified 11/07/16 15:27 Antibiotics) "LOOPY" Home Medications: HOME MEDICATIONS Aspirin [Aspirin Chewable] 81 mg PO DAILY 06/25/13 [Last Taken Unknown] Metoprolol Tartrate [Lopressor] 50 mg PO BID 06/25/13 [Last Taken Unknown] Nitroglycerin 0.4 mg SL Q5M PRN 06/25/13 [Last Taken Unknown] Omeprazole [Prilosec] 40 mg PO DAILY 06/25/13 [Last Taken Unknown] glipiZIDE [Glipizide Xl] 2.5 mg PO DAILY 06/25/13 [Last Taken Unknown] Blood Sugar Diagnostic, Drum [Accu-Chek Compact] 1 each MC DAILY 09/12/14 [Last Taken Unknown] ALPRAZolam [Xanax] 0.25 mg PO BID 11/25/14 [Last Taken Unknown] Propylene Glycol/Peg 400 [Systane Liquid Gel Eye Drops] 1 drop OP BID PRN [Last Taken Unknown] Rosuvastatin Calcium [Crestor] 10 mg PO DAILY 09/12/16 [Last Taken Unknown] risperiDONE [Risperdal] 0.25 mg PO DAILY 09/12/16 [Last Taken Unknown] ALPRAZolam [Xanax] 0.25 mg PO BID 11/07/16 [Last Taken Unknown] Famotidine 20 mg PO HS 11/07/16 [Last Taken Unknown] Furosemide [Lasix] 40 mg PO DAILY 11/07/16 [Last Taken Unknown] Mirtazapine 7.5 mg PO HS 11/07/16 [Last Taken Unknown] Potassium Chloride [K-Dur] 20 meq PO BID 11/07/16 [Last Taken Unknown] Sertraline HCl [Zoloft] 50 mg PO DAILY 11/07/16 [Last Taken Unknown] - History of Present Illness Narrative: Patient presents with right-sided facial droop and expressive aphasia and it appears to be some component of confusion. The last time the patient was seen normal was yesterday afternoon according to the daughter. We now appear to be upwards to 24 hours to the onset of the stroke like symptoms. Last Date Known Well: 11/06/16 Last Time Known Well: 15:00 Onset: cannot confirm onset Severity: moderate - Character of Deficits New weakness: Present: facial (rt) Additional Deficits: Present: impaired speech Baseline Cognition: Present: alert, oriented x 4 Baseline Gait: Present: walks w/o assistance Associated Symptoms: Reports: altered mental status Review of Systems - Review of Systems Constitutional: Present: See HPI EYE: Present: no symptoms reported ENT: Present: no symptoms reported Respiratory: Present: no symptoms reported Cardiology: Present: no symptoms reported Gastrointestinal/Abdominal: Present: no symptoms reported Genitourinary: Present: no symptoms reported Musculoskeletal: Present: no symptoms reported Skin: Present: no symptoms reported Neurological: Present: See HPI Endocrine: Present: no symptoms reported Hematologic/Lymphatic: Present: no symptoms reported Psych: Present: no symptoms reported - Patient's Past Medical History Patient History - Medical: Anxiety, Diabetes Type 2, Dementia, Depression, GERD Patient History - Cardiac/Respiratory: Hypertension, Hyperlipidemia Patient History - Cancer: No Hx of Cancer Patient History - Other: None - Social History Living Situations: alone Abuse History: No History of abuse Psych History: Hx of Anxiety, Hx of Depression, Current tx/ever been on anti- depressants or anti-anxiety meds Alcohol Use: none Drug Use: none - Immunizations Immunizations Up to Date: Yes Hx Pneumococcal Vaccination: Yes History of Influenza Vaccine: Yes Physical Exam - Physical Exam General Appearance: Present: wd/wn, alert, moderate distress Eye Exam: Normal inspection: bilateral, PERRL: bilateral Ears, Nose, Throat: Present: normal ENT inspection, H, normal pharynx Neck: Present: normal inspection, nontender Respiratory: Present: no respiratory distress, normal breath sounds, no accessory muscle use, chest nontender, lungs clear Cardiovascular/Chest: Present: regular rate, rhythm, no murmur, normal peripheral pulses Gastrointestinal/Abdominal: Present: normal bowel sounds, nontender, nondistended, soft, no organomegaly Rectal Exam: Present: deferred Back Exam: Present: normal inspection, normal range of motion Extremity Exam: Present: normal inspection, non-tender, no edema, normal range of motion Neurological Exam: Present: other - patient is somewhat difficult to determine exactly the mental status as her appears to be underlying dementia present. However according to the daughter her mother can normally talk and today she is having expressive aphasia. She does have right-sided facial droop as well which according to the daughter is new also Skin Exam: Present: normal color, warm/dry Lymphatic Exam: Present: no adenopathy ED Progress - Results and Orders Patient's Lab Results:: I have reviewed the patient's lab results. - Vital Signs Patient's Vital Signs:: I have reviewed the patient's vital signs. Vital Signs: Vital Signs 11/07/16 11/07/16 14:44 14:49 Temperature 35.6 C L Pulse Rate 104 H 104 H Respiratory 14 Rate Blood Pressure 106/69 O2 Sat by Pulse 97 Oximetry - EKG EKG: atrial fibrillation - CT/Ultrasound CT/Ultrasound Narrative: Head CT reviewed - Progress/Reassessment Chief Complaint: CerebroVascular Accident Plan - Plan Plan: While the patient under ordinary circumstances could've been a candidate for TPA , because we do not have a clear onset of symptoms where she is no longer a candidate for TPA. Patient is in A. fib with a rapid ventricular response and we will start a Cardizem drip on her to help control the rhythm until such time as we can get an echocardiogram and perhaps she will convert. She was seen here 6 weeks ago and at that time she was in normal sinus rhythm. Departure Clinical Impression: Atrial fibrillation with RVR CVA (cerebral vascular accident) Qualifiers: CVA mechanism: unspecified Qualified Code(s): I63.9 - Cerebral infarction, unspecified - Departure Disposition: [facility] Condition: Fair - Critical Care Total Time (mins): 40 Critical Care: Patient will need to be admitted overnight to the ICU so we can monitor her heart rate and we can get an echocardiogram to make sure we don't have some mural wall thrombus present. Patient has been started on a Cardizem drip to help control her heart rate here in the ED as well.
[2016-11-07 15:24] LABS: Anion Gap 16.7 mmol/L (6.8-13.8); BUN/Creatinine Ratio 15.1 (9.0-21.6); Bilirubin, Total 0.3 mg/dL (0.0-1.1); Calcium * 9.4 mg/dL (7.9-10.9); Carbon Dioxide 24.7 mmol/L (24-32.6); Potassium 4.4 mmol/L (3.4-4.6); Total Protein 7.9 gm/dL (6.2-8.2)
[2016-11-07] MEDS ORDERED: DILTIAZEM HCL 125 MG in DEXTROSE 5 % IN WATER 100 ML IV PRN ×2 (15:34)
[2016-11-07 15:36] LABS: Albumin * 2.8 gm/dl (3.4-5.0)
--- OUTSIDE RECORDS SUMMARY | 2016-11-07 15:42 | XMS REPORT | Continuity of Care Document ---
:1930 Author Organization [facility] ([facility]) Address [address] [place] [address] Phone [phone] Care Team Providers Name Role Phone Ajit Steinberg Primary Care Provider [phone] Source Comments This disclosure is being made pursuant to the Care Everywhere program, applicable federal and state laws, and may not contain all informaitonavailable regarding this patient.[facility] ([facility]) Active Allergies and Adverse Reactions Allergen [...]
--- OUTSIDE RECORDS SUMMARY | 2016-11-07 15:44 | XMS REPORT | Continuity of Care Document ---
:1930 Author Organization [facility] ([facility]) Address [address] [place] [address] Phone [phone] Care Team Providers Name Role Phone Ajit Steinberg Primary Care Provider [phone] Source Comments This disclosure is being made pursuant to the Care Everywhere program, applicable federal and state laws, and may not contain all informaitonavailable regarding this patient.[facility] ([facility]) Active Allergies and Adverse Reactions Allergen Noted [...]
[2016-11-07] MEDS ORDERED: NORMAL SALINE 1,000 ML IV ONE (16:31)
[2016-11-07] MEDS ORDERED: NORMAL SALINE 1,000 ML in NORMAL SALINE 1,000 ML IV ONE (16:32)
[2016-11-07] MEDS: NORMAL SALINE 1,000 ML IV PRN (19:06)
[2016-11-07] MEDS ORDERED: NITROGLYCERIN 0.4 MG/TAB BTL SL PRN (19:57)
[2016-11-07] MEDS: POTASSIUM CHLORIDE 20 MEQ TABLET.SA PO SCH (20:25)
[2016-11-07] MEDS: METOPROLOL TARTRATE 50 MG TABLET PO SCH (20:25)
[2016-11-07] MEDS: FAMOTIDINE 20 MG TABLET PO SCH (20:26)
[2016-11-07] MEDS: ALPRAZolam 0.25 MG TABLET PO SCH (20:26)
--- NOTE | 2016-11-07 21:20 | HP ---
Chief Complaint - Chief Complaint Date of Service: 11/07/16 Time of Service: 20:00 Chief Complaint: aphasia, weakness History of Present Illness: 86 years old female adm to the hospital with reports of aphasia and weakness. Pt is able to follow commands and answer yes/no questions with nodding of the head. Unable to obtain information from patient due to aphasia, secondary information provided to nurse through family members; Who stated pt was recently discharge from the intermediate. She lives alone and could talk before this incident. Earlier today she push her life alert button and EMS found her on her couch confused and aphasic. In ER a-fib RVR, she responded well to IVF, uncertain of onset of s/s, pt is not a candidate for TPA. She is adm inpatient for further evaluation. 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 MRI head, US carotid duplex and Echo pending. - Patient's Past Medical History Patient History - Medical: Anxiety, Diabetes Type 2, Dementia, Depression, GERD , Renal Disease - CKD stage III-IV Patient History - Cardiac/Respiratory: Coronary Heart Disease, Hypertension, Hyperlipidemia, Other - thyroid nodule, kidney stones Patient History - Cancer: No Hx of Cancer Patient History - Surgical Procedures: Urology - cystoscopy Patient History - Other: None - Family History Mother Family History - Medical: , History Unknown - Social History Living Situations: alone Abuse History: No History of abuse Psych History: Hx of Anxiety, Hx of Depression, Current tx/ever been on anti- depressants or anti-anxiety meds Smoking Status: Never smoker Have you smoked in the past 12 months: No Alcohol Use: none Drug Use: none - Immunizations Immunizations Up to Date: Yes Hx Pneumococcal Vaccination: Yes History of Influenza Vaccine: Yes Review Of Systems (GEN) - Review of Systems Generalized/Overall Review: Present: No Symptoms Reported EENTM: Present: No Symptoms Reported Respiratory: Present: No Symptoms Reported Cardiac: Present: No Symptoms Reported Abdominal: Present: No Symptoms Reported Genitourinary: Present: No Symptoms Reported Musculoskeletal: Present: Muscle Pain Neurological: Present: Other - pt unable to atriculate her words secondary to CVA dysarthria Skin: Present: No Symptoms Reported Endocrine: Present: No Symptoms Reported Immunizations: IMMUNIZATION HX Immunizations Up to Date Yes History of Influenza Vaccine Yes Hx Pneumococcal Vaccination Yes Allergies/Adverse Reactions: Allergies Allergy/AdvReac Type Severity Reaction Status Date / Time Sulfa (Sulfonamide AdvReac Mild MAKES HER Verified 11/07/16 17:27 Antibiotics) "LOOPY" Home Medications: HOME MEDICATIONS Aspirin [Aspirin Chewable] 81 mg PO DAILY 06/25/13 [Last Taken Unknown] Metoprolol Tartrate [Lopressor] 50 mg PO BID 06/25/13 [Last Taken Unknown] Nitroglycerin 0.4 mg SL Q5M PRN 06/25/13 [Last Taken Unknown] Omeprazole [Prilosec] 40 mg PO DAILY 06/25/13 [Last Taken Unknown] glipiZIDE [Glipizide Xl] 2.5 mg PO DAILY 06/25/13 [Last Taken Unknown] Blood Sugar Diagnostic, Drum [Accu-Chek Compact] 1 each MC DAILY 09/12/14 [Last Taken Unknown] ALPRAZolam [Xanax] 0.25 mg PO BID 11/25/14 [Last Taken Unknown] Propylene Glycol/Peg 400 [Systane Liquid Gel Eye Drops] 1 drop OP BID PRN [Last Taken Unknown] Rosuvastatin Calcium [Crestor] 10 mg PO DAILY 09/12/16 [Last Taken Unknown] risperiDONE [Risperdal] 0.25 mg PO DAILY 09/12/16 [Last Taken Unknown] ALPRAZolam [Xanax] 0.25 mg PO BID 11/07/16 [Last Taken Unknown] Famotidine 20 mg PO HS 11/07/16 [Last Taken Unknown] Furosemide [Lasix] 40 mg PO DAILY 11/07/16 [Last Taken Unknown] Mirtazapine 7.5 mg PO HS 11/07/16 [Last Taken Unknown] Potassium Chloride [K-Dur] 20 meq PO BID 11/07/16 [Last Taken Unknown] Sertraline HCl [Zoloft] 50 mg PO DAILY 11/07/16 [Last Taken Unknown] Exam - Exam Vital Signs: Vital Signs - Last Taken Temp 36.6 C 11/07/16 19:21 Pulse 103 H 11/07/16 20:25 Resp 16 11/07/16 19:21 BP 96/61 11/07/16 20:25 Pulse Ox 99 11/07/16 19:21 Constitutional: Present: Oriented x3, Cooperative, No distress, Elderly, Obese ENT Exam: Present: moist mucous membranes Eye Exam: bilateral eye: PERRL Neck: Present: full range of motion Back Exam: Present: normal inspection Breasts: Present: Exam deferred Respiratory: Present: chest non-tender, lungs clear, normal breath sounds, no respiratory distress Cardiovascular/Chest: Present: normal peripheral pulses, no chest tenderness, no edema, no gallop, irregularly irregular Peripheral Pulses: dorsalis-pedis (R): 3+, dorsalis-pedis (L): 3+ Abdomen: Present: Normal bowel sounds, soft, nontender, nondistended, no rebound tenderness /Rectal: Present: Exam deferred Extremity: Present: normal range of motion, non-tender, normal inspection, no pedal edema Skin Exam: Present: normal color, warm/dry Lymphatic: Present: no adenopathy Neurologic: Present: oriented x 3, aphasia, facial droop - leftside corner of the mouth, tongue deviated to the left, motor weakness Appearance: Present: appropriate appearance Eye contact: Present: cooperative, other - dysarthria Thoughts: Present: no apparent hallucination Diagnostic Studies: Laboratory Results WBC 11.2 K/mm3 (4.0-10.5) H 11/07/16 15:00 RBC 4.48 M/mm3 (4.2-5.4) 11/07/16 15:00 Hgb 13.3 gm/dL (12.5-16.0) 11/07/16 15:00 Hct 40.4 % (37.0-47.0) 11/07/16 15:00 MCV 90.2 fl (78-100) 11/07/16 15:00 MCH 29.7 pg (27-31) 11/07/16 15:00 MCHC 32.9 g/dl (32-36) 11/07/16 15:00 RDW 13.5 % (11.5-14.0) 11/07/16 15:00 Plt Count 550 K/mm3 (150-450) H 11/07/16 15:00 MPV 9.9 fl (6.0-9.5) H 11/07/16 15:00 Immature Gran % (Auto) 0.40 % (0.001-0.429) 11/07/16 15:00 Immature Gran # (Auto) 0.04 K/mm3 (0.000-0.0310) H 11/07/16 15:00 Neutrophils % 68.3 % (42-75.0) 11/07/16 15:00 Lymphocytes % 20.1 % (20-51) 11/07/16 15:00 Monocytes % 9.3 % (0.0-9) H 11/07/16 15:00 Eosinophils % 1.3 % (0.0-3.0) 11/07/16 15:00 Basophils % 0.6 % (0.0-1.0) 11/07/16 15:00 Nucleated RBC % 0.0 k/mm3 (0-1) 11/07/16 15:00 Neutrophils # 7.6 K/mm3 (1.3-6.0) H 11/07/16 15:00 Lymphocytes # 2.2 k/mm3 (1.5-3.5) 11/07/16 15:00 Monocytes # 1.0 k/mm3 (0.0-1.0) 11/07/16 15:00 Eosinophils # 0.2 k/mm3 (0.0-0.7) 11/07/16 15:00 Absolute Basophils 0.1 k/mm3 (0.0-0.1) 11/07/16 15:00 ESR 88 mm/hr (0-15) H 11/07/16 15:00 PT 11.3 Seconds (9.4-11.4) 11/07/16 15:00 INR (Anticoag Therapy) 1.09 INR (0.90-1.10) 11/07/16 15:00 PTT ([place]) 22.5 Seconds (24-32) L 11/07/16 15:00 Sodium 139 mmol/L (132-142) 11/07/16 15:00 Plasma Sodium 141 mmol/L (130-142) 11/07/16 15:00 Potassium 4.4 mmol/L (3.4-4.6) 11/07/16 15:00 Chloride 102 mmol/L (97-106) 11/07/16 15:00 Carbon Dioxide 24.7 mmol/L (24-32.6) 11/07/16 15:00 Anion Gap 16.7 mmol/L (6.8-13.8) H 11/07/16 15:00 BUN 27 mg/dL (3-23) H 11/07/16 15:00 Creatinine 1.79 mg/dL (0.4-1.4) H 11/07/16 15:00 Est GFR (Non-Af Amer) 29 mL/min (60-130) L 11/07/16 15:00 BUN/Creatinine Ratio 15.1 (9.0-21.6) 11/07/16 15:00 Random Glucose 223 mg/dL (70-110) H 11/07/16 15:00 Calcium 9.4 mg/dL (7.9-10.9) 11/07/16 15:00 Calcium Adj for Albumin 10.0 mg/dL (8.4-10.2) 11/07/16 15:00 Total Bilirubin 0.3 mg/dL (0.0-1.1) 11/07/16 15:00 AST 19 U/L (0-48) 11/07/16 15:00 ALT 23 U/L (19-67) 11/07/16 15:00 Alkaline Phosphatase 138 U/L (50-170) 11/07/16 15:00 Total Protein 7.9 gm/dL (6.2-8.2) 11/07/16 15:00 Albumin 2.8 gm/dl (3.4-5.0) L 11/07/16 15:00 Assessment/Plan - Narrative Narrative: CVA- likely due to new A-fib On adm aphasia and Dysarthria, per ER and nurses report pt was able to talk clearly earlier today base on family reports. 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 Continue to monitor on telemetry 2D-echo pending pt responded well to IVF bolus in ER, continue with IVF as rate is controlled and BP improving Discussed with Dr Pulido Will hold off on Cardizem for now CKD stage III-IV On adm Bun/Cre-->27/1.79 GFR 29 Continue with IVF hydration Diabetes Accu-check AC+HS and low dose SSI Keep NPO for now until speech eval is completed Code status: DNR VTE ppx: GI ppx:pepcid Anticipate discharge to rehab vs home 1-3 days will need extensive speech therapy Time 45 minutes - Assessment/Plan (1) Diabetes Problem: Chronic Qualifiers: Diabetes mellitus type: type 2 (2) Atrial fibrillation with RVR Problem: Acute (3) CVA (cerebral vascular accident) Problem: Acute Qualifiers: CVA mechanism: unspecified Qualified Code(s): I63.9 - Cerebral infarction, unspecified (4) Dehydration Problem: Acute
[2016-11-07] MEDS ORDERED: POLYVINYL ALCOHOL 150 DROP BTL OP PRN (21:47)
[2016-11-08] MEDS: NORMAL SALINE 1,000 ML IV PRN (02:46)
[2016-11-08 06:22] LABS: Anion Gap 14.7 mmol/L (6.8-13.8); BUN/Creatinine Ratio 16.6 (9.0-21.6); Calcium * 8.6 mg/dL (7.9-10.9); Carbon Dioxide 25.1 mmol/L (24-32.6); Estimated Creat Clear 21.9; Potassium 3.8 mmol/L (3.4-4.6)
[2016-11-08] MEDS: PANTOPRAZOLE SODIUM 40 MG TABLET.EC PO SCH (06:54)
[2016-11-08] MEDS: APIXABAN 2.5 MG TABLET PO SCH ×2 (08:37→20:11)
[2016-11-08] MEDS: glipiZIDE 2.5 MG TAB.SR.24H PO SCH (08:38)
[2016-11-08] MEDS: SERTRALINE HCL 50 MG TABLET PO SCH (08:38)
[2016-11-08] MEDS: risperiDONE 0.25 MG TABLET PO SCH (08:38)
[2016-11-08] MEDS: METOPROLOL TARTRATE 50 MG TABLET PO SCH ×2 (08:38→20:14)
[2016-11-08] MEDS: FUROSEMIDE 40 MG TABLET PO SCH (08:38)
[2016-11-08] MEDS: POTASSIUM CHLORIDE 20 MEQ TABLET.SA PO SCH ×2 (08:38→20:11)
[2016-11-08] MEDS: ALPRAZolam 0.25 MG TABLET PO SCH ×2 (08:40→20:11)
[2016-11-08] MEDS: 0.5 NORMAL SALINE 1,000 ML IV PRN ×2 (08:51→20:07)
[2016-11-08] MEDS ORDERED: ROSUVASTATIN CALCIUM 10 MG TABLET PO SCH (09:00)
[2016-11-08] MEDS ORDERED: ASPIRIN 81 MG TAB.CHEW PO SCH (09:00)
[2016-11-08] MEDS ORDERED: POLYVINYL ALCOHOL 150 DROP BTL OP PRN (11:20)
--- NOTE | 2016-11-08 12:26 | PN ---
Subjective - Date and Time Seen Date: 11/08/16 Time: 12:19 Subjective Narrative: Patient is dysarthric. MRI acute to subacute CVA , left precentral gyrus. Objective - Review of Systems Generalized/Overall Review: Reports: No Symptoms Reported EENTM: Reports: No Symptoms Reported Respiratory: Reports: No Symptoms Reported Cardiac: Reports: Palpitations. Denies: Chest Pain Abdominal: Denies: Nausea, Vomiting Genitourinary Symptoms: Denies: Urgency, Frequency Musculoskeletal Complaints: Reports: No Symptoms Reported Neurological: Reports: Other - she knows she has garbled speech - Vitals Vitals: Last Vital Signs Temp 36.6 C 11/08/16 11:19 Pulse 85 11/08/16 11:19 Resp 18 11/08/16 11:19 BP 106/47 11/08/16 11:19 Pulse Ox 94 11/08/16 11:19 - Abnormal Lab Findings Abnormal Lab Findings: Abnormal Lab Results 11/08/16 11/08/16 11/08/16 Range/Units 06:00 06:00 06:00 ESR 79 H (0-15) mm/hr Sodium 147 H (132-142) mmol/L Plasma Sodium 147 H (130-142) mmol/L Chloride 111 H (97-106) mmol/L Anion Gap 14.7 H (6.8-13.8) mmol/L BUN 25 H (3-23) mg/dL Creatinine 1.51 H (0.4-1.4) mg/dL Est GFR (Non-Af Amer) 35 L D (60-130) mL/min Hemoglobin A1c 8.0 H (4.00-6.0) % HDL Cholesterol 27 L (40-60) mg/dL Cholesterol/HDL Ratio 5.0 H (3.3-4.4) mg/dL - Exam Constitutional: Present: Alert, Oriented x3, Cooperative ENT Exam: Present: hearing grossly normal Neck: Present: supple Breasts: Present: Exam deferred Respiratory: Present: decreased breath sounds, No rales, No wheezing Cardiovascular/Chest: Present: no JVD, no murmur, irregularly irregular Abdomen: Present: Normal bowel sounds, soft, nontender, nondistended Extremity: Present: no pedal edema, no calf tenderness Neurologic: Present: other - dysarthric, shallow Right nasolabial fold, tongue devuated slightly to the right Assessment/Plan - Problems/Diagnosis (1) CVA (cerebral vascular accident) Problem: Acute Qualifiers: CVA mechanism: unspecified Qualified Code(s): I63.9 - Cerebral infarction, unspecified Narrative: acute to subacute, left inferior precentral gyrus. PT/OT/ST eval and treat. (2) Atrial fibrillation with RVR Problem: Acute Narrative: new onset. started on eliquis. check Echo. (3) Diabetes Problem: Chronic Qualifiers: Diabetes mellitus type: type 2 Chronic kidney disease stage: stage 3 ( moderate) (4) Chronic renal failure, stage 3 (moderate) Problem: Chronic Narrative: continue with IVF. (5) Dementia Problem: Chronic Qualifiers: Dementia type: Alzheimer's disease Alzheimer's disease onset: late-onset Dementia behavioral disturbance: without behavioral disturbance Qualified Code (s): G30.1 - Alzheimer's disease with late onset; F02.80 - Dementia in other diseases classified elsewhere without behavioral disturbance
[2016-11-08] MEDS ORDERED: oxyCODONE HCL/ACETAMINOPHEN 1 TAB TABLET PO PRN (18:46)
[2016-11-08] MEDS: ROSUVASTATIN CALCIUM 10 MG TABLET PO SCH (20:11)
[2016-11-08] MEDS: FAMOTIDINE 20 MG TABLET PO SCH (20:12)
[2016-11-08] MEDS: ACETAMINOPHEN 325 MG TABLET PO PRN (20:12)
[2016-11-09] MEDS: 0.5 NORMAL SALINE 1,000 ML IV PRN ×2 (06:05→20:11)
[2016-11-09] MEDS: PANTOPRAZOLE SODIUM 40 MG TABLET.EC PO SCH (06:36)
[2016-11-09] MEDS: POTASSIUM CHLORIDE 20 MEQ TABLET.SA PO SCH ×2 (08:53→20:19)
[2016-11-09] MEDS: SERTRALINE HCL 50 MG TABLET PO SCH (08:53)
[2016-11-09] MEDS: METOPROLOL TARTRATE 50 MG TABLET PO SCH ×2 (08:53→20:19)
[2016-11-09] MEDS: risperiDONE 0.25 MG TABLET PO SCH (08:53)
[2016-11-09] MEDS: glipiZIDE 2.5 MG TAB.SR.24H PO SCH (08:53)
[2016-11-09] MEDS: FUROSEMIDE 40 MG TABLET PO SCH (08:53)
[2016-11-09] MEDS: APIXABAN 2.5 MG TABLET PO SCH ×2 (08:53→20:19)
[2016-11-09] MEDS: ALPRAZolam 0.25 MG TABLET PO SCH ×2 (09:01→20:19)
--- NOTE | 2016-11-09 10:03 | PN ---
Subjective - Date and Time Seen Date: 11/09/16 Time: 09:44 Subjective Narrative: doing well. up with one assist. working with therapy today. c/o low back pain from sitting in chair. Objective - Review of Systems Generalized/Overall Review: Reports: Weakness, Fatigue EENTM: Reports: No Symptoms Reported Respiratory: Reports: Shortness of Breath Cardiac: Reports: No Symptoms Reported Abdominal: Reports: No Symptoms Reported Genitourinary Symptoms: Reports: No Symptoms Reported Musculoskeletal Complaints: Reports: Back Pain Neurological: Reports: Weakness Skin: Reports: No Symptoms Reported Endocrine: Reports: No Symptoms Reported Misc: All systems neg except as marked - Vitals Vitals: Last Vital Signs Temp 37.0 C 11/09/16 07:21 Pulse 104 H 11/09/16 08:53 Resp 20 11/09/16 07:21 BP 121/63 11/09/16 08:53 Pulse Ox 98 11/09/16 07:21 - EKG/Xray Findings EKG: atrial fibrillation EKG read: Interp. 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 right leg strength weaker than left. Neurologic: Present: alert, oriented x 3, aphasia, facial droop - right Assessment/Plan Plan Narrative: Atrial fibrillation - likely cause of patient's stroke - currently anticoagulated with Eliquis - Ct of the head non acute on 11/08/16 - MRI of the brain (11/08/16) showed acute to subacute lacunar infarct in the inferior precentral gyrus - patient with right sided defect, aphasia and dysphasia - echo with bubble study currently pending. - heart rate controlled on metoprolol - monitor on tele with vital signs q 4 hours CVA - CT of the head (11/08/16) non-acute - MRI of the brain (11/08/16) acute to subacute lacunar infarct in the inferior precentral gyrus - anticoagulated with Eliquis - currently with right sided defect, aphasia and dysphasia - PT/OT/speech therapy consulting - ambulate TID and up to chairs for meals - echo with bubble study pending. - carotid US with non significant stenosis bilat. ' - will need SNF at discharge. dementia - vascular dementia - repeat MMSE today to compare - will need SNF at discharge, is not safe to live at home alone. CRF - Stage 3 - responding to IV fluids - check daily weight / strict I&Os to monitor for fluid overload DM - stable - hgba1c elevated at 8.0, adjust meds outpatient. Code Status: DNR VTE: Eliquis - Problems/Diagnosis (1) Atrial fibrillation with RVR Problem: Acute (2) CVA (cerebral vascular accident) Problem: Acute Qualifiers: CVA mechanism: unspecified Qualified Code(s): I63.9 - Cerebral infarction, unspecified (3) Chronic renal failure, stage 3 (moderate) Problem: Chronic (4) Dementia Problem: Chronic Qualifiers: Dementia type: vascular dementia Dementia behavioral disturbance: without behavioral disturbance Qualified Code(s): F01.50 - Vascular dementia without behavioral disturbance (5) Diabetes Problem: Chronic Qualifiers: Diabetes mellitus type: type 2 Diabetes mellitus complication status: with kidney complications Diabetes mellitus complication detail: with chronic kidney disease Diabetes mellitus halfway insulin use: without halfway use Chronic kidney disease stage: stage 3 (moderate) Qualified Code(s): E11.22 - Type 2 diabetes mellitus with diabetic chronic kidney disease; N18.3 - Chronic kidney disease, stage 3 (moderate)
[2016-11-09] MEDS: ROSUVASTATIN CALCIUM 10 MG TABLET PO SCH (20:19)
[2016-11-09] MEDS: FAMOTIDINE 20 MG TABLET PO SCH (20:19)
[2016-11-10] MEDS: 0.5 NORMAL SALINE 1,000 ML IV PRN (06:17)
[2016-11-10] MEDS: PANTOPRAZOLE SODIUM 40 MG TABLET.EC PO SCH (07:33)
[2016-11-10] MEDS: glipiZIDE 2.5 MG TAB.SR.24H PO SCH (08:41)
[2016-11-10] MEDS: FUROSEMIDE 40 MG TABLET PO SCH (08:41)
[2016-11-10] MEDS: APIXABAN 2.5 MG TABLET PO SCH (08:41)
[2016-11-10] MEDS: SERTRALINE HCL 50 MG TABLET PO SCH (08:41)
[2016-11-10] MEDS: POTASSIUM CHLORIDE 20 MEQ TABLET.SA PO SCH (08:41)
--- NOTE | 2016-11-10 08:41 | ECHO ---
This report is available in the EMR
[2016-11-10] MEDS: risperiDONE 0.25 MG TABLET PO SCH (08:42)
[2016-11-10] MEDS: METOPROLOL TARTRATE 50 MG TABLET PO SCH (08:42)
[2016-11-10] MEDS: ALPRAZolam 0.25 MG TABLET PO SCH (08:44)
[2016-11-10] MEDS: ACETAMINOPHEN 325 MG TABLET PO PRN (09:49)
[2016-11-10 10:11] VITALS: BP 101/54
[2016-11-10 10:12] LABS: Hemoglobin 10.8 gm/dL (12.5-16.0); Mean Cell Volume 92.6 fl (78-100); Mean Corpuscular Hemoglobin 29.4 pg (27-31); Mean Corpuscular Hgb Conc 31.8 g/dl (32-36); Mean Platelet Volume 9.5 fl (6.0-9.5); Neutrophil # 4.6 K/mm3 (1.3-6.0); Platelet Count 445 K/mm3 (150-450); Red Blood Count 3.67 M/mm3 (4.2-5.4); Red Cell Distribution Width 13.9 % (11.5-14.0); White Blood Count 7.4 K/mm3 (4.0-10.5)
[2016-11-10 10:37] LABS: Anion Gap 15.2 mmol/L (6.8-13.8); BUN/Creatinine Ratio 9.7 (9.0-21.6); Calcium * 9.4 mg/dL (7.9-10.9); Carbon Dioxide 24.3 mmol/L (24-32.6); Potassium 4.5 mmol/L (3.4-4.6)
--- NOTE | 2016-11-10 13:08 | DS ---
(1) Atrial fibrillation with RVR Problem: Acute (2) CVA (cerebral vascular accident) Problem: Acute Qualifiers: CVA mechanism: unspecified Qualified Code(s): I63.9 - Cerebral infarction, unspecified (3) Chronic renal failure, stage 3 (moderate) Problem: Chronic (4) Dementia Problem: Chronic Qualifiers: Dementia type: vascular dementia Dementia behavioral disturbance: without behavioral disturbance Qualified Code(s): F01.50 - Vascular dementia without behavioral disturbance (5) Diabetes Problem: Chronic Qualifiers: Diabetes mellitus type: type 2 Diabetes mellitus complication status: with kidney complications Diabetes mellitus complication detail: with chronic kidney disease 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 ekg showed new onset afib with rvr that responded well to iv fluids. head ct was non acute. pt admitted for further work up. 11/08/16 mri showed acute to subacute cva left precentral gyrus. pt/ot/speech therapy ordered. started on eliquis due to afib. hr controlled with metoprolol. 11/09/16 cont therapy. echo pend. carotids show non significant stenosis. 11/10/16 discharge day. patient discharged to SNF for continued rehab. Procedures Performed: none Discharge Disposition: [facility] Disposition: [facility] Condition: Undetermined Discharge Activity: Activity as tolerated [facility] Level of Care:: SNF - [facility] Therapy: Physicial Therapy, Occupation Therapy, Speech Therapy Referrals: Ajit Steinberg MD [Primary Care Provider] - Problem Oriented Discharge Instructions to Patient/Family: Stroke Prevention, [id number], Aphasia, Rehabilitation After a Stroke, Adult Additional Patient Instructions (free text): follow up with pcp in 1-2 weeks. New medications: -Eliquis 2.5 mg 2 times a day Physical therapy, Occupational Therapy and Speech Therapy have been ordered outpatient. Prescriptions (Any new or edited meds): Apixaban [Eliquis] 2.5 mg PO BID #60 tablet Complete Home Medications List: Complete Home Medication List: Metoprolol Tartrate [Lopressor] 50 mg PO BID 06/25/13 Nitroglycerin 0.4 mg SL Q5M PRN 06/25/13 Omeprazole [Prilosec] 40 mg PO DAILY 06/25/13 glipiZIDE [Glipizide Xl] 2.5 mg PO DAILY 06/25/13 Blood Sugar Diagnostic, Drum [Accu-Chek Compact] 1 each MC DAILY 09/12/14 ALPRAZolam [Xanax] 0.25 mg PO BID 11/25/14 Propylene Glycol/Peg 400 [Systane Liquid Gel Eye Drops] 1 drop OP BID PRN Rosuvastatin Calcium [Crestor] 10 mg PO DAILY 09/12/16 risperiDONE [Risperdal] 0.25 mg PO DAILY 09/12/16 ALPRAZolam [Xanax] 0.25 mg PO BID 11/07/16 Furosemide [Lasix] 40 mg PO DAILY 11/07/16 Mirtazapine 7.5 mg PO HS 11/07/16 Potassium Chloride [K-Dur] 20 meq PO BID 11/07/16 Sertraline HCl [Zoloft] 50 mg PO DAILY 11/07/16 Apixaban [Eliquis] 2.5 mg PO BID #60 tablet 11/10/16
== END 2016-11-10 14:40 | DRG 66 ==
LOC: ER 14:39 → SCU 15:39 → MS 19:49
PROVIDERS: ADMIT Family Medicine; ATTEND Internal Medicine
PROC: B246ZZZ Ultrasonography of Right and Left Heart (ICD-10-PCS; principal; 2016-11-08)
DX: I63.9 Cerebral infarction, unspecified (principal); R47.01 Aphasia; R47.02 Dysphasia; R53.1 Weakness; N18.3 Chronic kidney disease, stage 3 (moderate); E78.5 Hyperlipidemia, unspecified; F01.50 Vascular dementia, unspecified severity, without behavioral disturbance, psychotic disturbance, mood disturbance, and anxiety; I12.9 Hypertensive chronic kidney disease with stage 1 through stage 4 chronic kidney disease, or unspecified chronic kidney disease; E11.22 Type 2 diabetes mellitus with diabetic chronic kidney disease; I25.10 Atherosclerotic heart disease of native coronary artery without angina pectoris; Z79.82 Long term (current) use of aspirin

== ENCOUNTER 2018-08-16 17:14 | Inpatient (IN) ==
[2018-08-16] MEDS ORDERED: ALBUTEROL SULFATE 2.5 MG/0.5 ML VIAL.NEB IH ONE (17:29)
[2018-08-16 17:54] LABS: Hematocrit 38.4 % (37.0-47.0); Hemoglobin 12.1 gm/dL (12.5-16.0); Mean Cell Volume 90.6 fl (78-100); Mean Corpuscular Hemoglobin 28.5 pg (27-31); Mean Corpuscular Hgb Conc 31.5 g/dl (32-36); Mean Platelet Volume 9.6 fl (8-12.5); Neutrophil # 8.6 K/mm3 (1.3-6.0); Neutrophil % 78.9 % (42-75.0); Platelet Count 278 K/mm3 (150-450); Red Blood Count 4.24 M/mm3 (4.2-5.4); Red Cell Distribution Width 15.1 % (11.5-14.0); White Blood Count 10.9 K/mm3 (4.0-10.5)
--- NOTE | 2018-08-16 18:10 | ERNOTE ---
Dyspnea - Date Date of Service: 08/16/18 - General Presenting Symptoms: shortness of breath, difficulty of breathing, wheezing Time Seen by Provider: 08/16/18 17:25 Source: EMS notes reviewed Exam Limitations: dementia - Immun/Allergies/Home Medications Immunizations: IMMUNIZATION HX Immunizations Up to Date Yes History of Influenza Vaccine Yes Hx Pneumococcal Vaccination Yes Allergies/Adverse Reactions: Allergies Sulfa (Sulfonamide Antibiotics) Adverse Reaction (Mild, Verified 08/16/18 17:31) MAKES HER "LOOPY" Home Medications: HOME MEDICATIONS Nitroglycerin 0.4 mg SUBLINGUAL Q5M PRN 06/25/13 [Last Taken Unknown] Omeprazole [Prilosec] 40 mg PO DAILY 06/25/13 [Last Taken Unknown] glipiZIDE [Glipizide Xl] 2.5 mg PO DAILY 06/25/13 [Last Taken Unknown] Rosuvastatin Calcium [Crestor] 10 mg PO DAILY 09/12/16 [Last Taken Unknown] Mirtazapine 7.5 mg PO HS 11/07/16 [Last Taken Unknown] Apixaban [Eliquis] 2.5 mg PO BID #60 tab 11/10/16 [Last Taken Unknown] acetaminophen 325 mg tablet 650 mg PO Q6H PRN tab 04/19/18 [Last Taken Unknown] acetaminophen ER 650 mg tablet,extended release 650 mg PO Q8H 04/19/18 [Last Taken Unknown] alprazolam 0.25 mg tablet 0.125 mg PO BID tab 04/19/18 [Last Taken Unknown] cetirizine 10 mg tablet 10 mg PO DAILY tab 04/19/18 [Last Taken Unknown] peg 400-propylene glycol (PF) 0.4 %-0.3 % eye drops in a dropperette 1 drp OP QID 04/19/18 [Last Taken Unknown] blood sugar diagnostic strips See Dose Instructions .ROUTE .MEDSUPPLY #20 ea 05/25/18 [Last Taken Unknown] cholecalciferol (vitamin D3) 2,000 unit capsule 2,000 unit PO DAILY 05/25/18 [Last Taken Unknown] furosemide 20 mg tablet 20 mg PO DAILY 05/25/18 [Last Taken Unknown] metoprolol tartrate 25 mg tablet 25 mg PO BID 05/25/18 [Last Taken Unknown] nystatin 100,000 unit/gram topical powder 1 applic TP BID 05/25/18 [Last Taken Unknown] potassium chloride ER 20 mEq tablet,extended release(part/cryst) 20 meq PO QMWF tab 05/25/18 [Last Taken Unknown] risperidone 0.25 mg tablet 0.125 mg PO DAILY tab 05/25/18 [Last Taken Unknown] sertraline 100 mg tablet 100 mg PO DAILY 05/25/18 [Last Taken Unknown] sertraline 50 mg tablet 50 mg PO DAILY tab 05/25/18 [Last Taken Unknown] vitamin E topical cream 1 applic TP TID PRN 05/25/18 [Last Taken Unknown] - History of Present Illness Narrative: patient presents from retirement with c/o dyspnea and perpheral cyanosis Severity: severe 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, oxygen Initiating event: Reports: upper resp illness Frequency of episodes: Reports: frequent episodes Modifying Factors - (Improves): Reports: nothing Modifying Factors (Worsens): Reports: nothing Associated Symptoms-Dyspnea: Reports: fever/chills, cough, wheezing, dizziness Review of Systems - Review of Systems Constitutional: Present: See HPI EYE: Present: no symptoms reported ENT: Present: no symptoms reported Respiratory: Present: See HPI, shortness of breath, cough, orthopnea, wheezing Cardiology: Present: no symptoms reported Gastrointestinal/Abdominal: Present: no symptoms reported Genitourinary: Present: no symptoms reported Musculoskeletal: Present: no symptoms reported Skin: Present: no symptoms reported Neurological: Present: no symptoms reported Endocrine: Present: no symptoms reported Hematologic/Lymphatic: Present: no symptoms reported Psych: Present: no symptoms reported All Other Systems: All systems neg except as marked Medical History (Last Reviewed 08/16/18 @ 17:31 by Guerline Andrews RN) Mental retardation (Acute) History of fall (Acute) per nurse, she does not recall this incident happened Hyperlipidemia (Acute) Pruritus (Acute) Anxiety Depression Dermatitis GERD (gastroesophageal reflux disease) Hypertension Thyroid nodule Surgical History: Surgical History (Last Reviewed 08/16/18 @ 17:31 by Guerline Andrews RN) History of cataract surgery Onset Date: ~08/10/05 Family History: Family History (Last Reviewed 08/16/18 @ 17:31 by Guerline Andrews RN) Mother , 82 Myocardial infarction Father , 88 Heart disease Social History: Preferred Language Azeri Smoking Status Never smoker Abuse History No History of abuse Psych History Hx of Anxiety,Hx of Depression,Currently on Meds (Last Reviewed 07/26/18 @ 08:28 by GABY Travis) No Social History Section defined Physical Exam - Physical Exam General Appearance: Present: moderate distress, anxious Head Exam: Present: normal inspection, no evidence of injury Eye Exam: Normal inspection: bilateral, PERRL: bilateral, EOMI: bilateral Ears, Nose, Throat: Present: normal ENT inspection, normal pharynx Neck: Present: normal inspection, nontender Respiratory: Present: respiratory distress, decreased breath sounds, crackles, rales Cardiovascular/Chest: Present: tachycardia Gastrointestinal/Abdominal: Present: normal bowel sounds, nontender, nondistended, soft, no organomegaly Back Exam: Present: normal inspection, normal range of motion, no CVA tenderness, no vertebral tenderness Extremity Exam: Present: normal inspection, non-tender, normal range of motion, no edema Neurological Exam: Present: disoriented to person, disoriented to time, disoriented to place, disoriented to situation Skin Exam: Present: normal color, warm/dry Lymphatic Exam: Present: no adenopathy Progress - Date and Time Seen: Date and Time: 08/16/18 19:35 patient unchanged, case discussed with dr pritchett, accepted for admission, orders written - Results and Orders Patient's Lab Results:: I have reviewed the patient's lab results. - Vital Signs Patient's Vital Signs:: I have reviewed the patient's vital signs. Vital Signs: Vital Signs 08/16/18 17:14 08/16/18 17:45 08/16/18 17:49 Temperature 37.8 C Pulse Rate 135 H 123 H 123 H Respiratory Rate 34 H 33 H 33 H Blood Pressure 198/92 H 145/67 O2 Sat by Pulse Oximetry 99 96 96 - EKG EKG #1 EKG: supraventricular tachycardia - X-Ray X-Ray #1 X-Ray: chest Interpretation: Discd w/ radiologist - pneummonia - Progress/Reassessment Chief Complaint: Dyspnea Progress:: Unchanged - Transfer of Care Expected Disposition: Admit Plan - Plan Plan: to admit to hospital Departure Clinical Impression: Pneumonia, Sepsis - Departure Disposition: Home self-care Condition: Serious
[2018-08-16 18:11] LABS: ALT 18 U/L (19-67); AST 21 U/L (0-48); Albumin * 3.3 gm/dl (3.4-5.0); Alkaline Phosphatase * 103 U/L (50-170); BNP * 633 pg/mL (5-550); Bilirubin, Total 0.3 mg/dL (0.0-1.1); Blood Urea Nitrogen 22 mg/dL (3-23); CRP 5.3 mg/dL (0.0-0.9); Ca. Corrected For Albumin 9.1 mg/dL (8.4-10.2); Calcium * 8.9 mg/dL (7.9-10.9); Carbon Dioxide 19.4 mmol/L (24-32.6); Chloride 106 mmol/L (97-106); Glucose * 210 mg/dL (70-110); Potassium 4.4 mmol/L (3.4-4.6); Sodium 142 mmol/L (132-142); Total Protein 7.7 gm/dL (6.2-8.2); Troponin I Less than 0.017 ng/mL (0.00-0.10)
[2018-08-16] MEDS ORDERED: cefTRIAXone SODIUM 1,000 MG/100 ML BAG IV ONE (18:11)
[2018-08-16] MEDS ORDERED: LEVOFLOXACIN IN DEXTROSE 5 % 750 MG/150 ML BAG IV ONE (18:11)
[2018-08-16] MEDS ORDERED: NORMAL SALINE 1,000 ML IV ONE (18:11)
[2018-08-16 19:17] LABS: Urine Bilirubin Negative (NEGATIVE); Urine Blood 250 /ul (NEGATIVE); Urine Ketone Negative (NEGATIVE); Urine Nitrite Negative (NEGATIVE); Urine Protein 100 mg/dL (NEGATIVE); Urine Specific Gravity >=1.030 SP.GR. (1.005-1.010); Urine Urobilinogen Normal (NORMAL)
[2018-08-16 19:30] LABS: Urine Appearance Cloudy (CLEAR); Urine Bacteria 2+; Urine Color Pale Yellow
[2018-08-16] MEDS ORDERED: LEVOFLOXACIN IN DEXTROSE 5 % 500 MG/100 ML BAG IV SCH (19:45)
[2018-08-16] MEDS: NORMAL SALINE 1,000 ML IV PRN (20:19)
[2018-08-17] MEDS: NORMAL SALINE 1,000 ML IV PRN ×2 (04:45→16:14)
[2018-08-17] MEDS ORDERED: ACETAMINOPHEN 325 MG TABLET PO PRN (07:05)
[2018-08-17] MEDS ORDERED: NITROGLYCERIN 0.4 MG/TAB BTL SL PRN (07:05)
--- NOTE | 2018-08-17 07:26 | HP ---
Chief Complaint - Chief Complaint Date of Service: 08/17/18 Time of Service: 06:25 Chief Complaint: dyspnea/ O2 desturation History of Present Illness: Danis Perales 88-year-old white female, resident of the [place], with past medical history of diabetes mellitus type 2, dementia of Alzheimer's type, hypertension, who was admitted on 08/16/2018 because of shortness of breath and oxygen desaturation. The patient is a poor historian. I did get a call from the assisted last night saying that the patient was shaking tremendously and her lips and her fingers were turning blue. Her oxygen saturation was only 75% despite 10 L of oxygen. I told the assisted to send her to the emergency room immediately and she was found to have an elevated white blood cell count, elevated lactic acid, infiltrates in her chest x-ray and patient was admitted for possible sepsis with pneumonia. Her ABG showed AG metabolic acidosis and respiratory acidosis. Her UA showed UTI. She was started on IV antibiotics and IV fluids. This morning the patient says that the only thing she can remember was that she walked to the dining room to eat her supper and after she sat down and drank water she started shaking and then she remembers her being wheeled out to the hospital. Medical History (Last Updated 08/17/18 @ 01:48 by Rimma Galeano RN) Mental retardation (Acute) History of fall (Acute) per nurse, she does not recall this incident happened Hyperlipidemia (Acute) Pruritus (Acute) Cerebral infarct Chronic atrial fibrillation Chronic kidney disease Anxiety Depression Dermatitis GERD (gastroesophageal reflux disease) Hypertension Thyroid nodule Surgical History: Surgical History (Last Reviewed 08/17/18 @ 01:49 by Rimma Galeano RN) History of cataract surgery Onset Date: ~08/10/05 Family History: Family History (Last Reviewed 08/17/18 @ 01:49 by Rimma Galeano RN) Mother , 82 Myocardial infarction Father , 88 Heart disease Social History: Patient Lives/Resources [facility] Utilized Preferred Language Indian Do you have any taoism or Yes: hoahaoism cultural preference? Smoking Status Never smoker Have you smoked in the past 12 No months Abuse History No History of abuse Psych History Hx of Anxiety,Hx of Depression,Currently on Meds (Last Reviewed 07/26/18 @ 08:28 by GABY Travis) No Social History Section defined Review Of Systems (GEN) - Review of Systems Generalized/Overall Review: Absent: Chills, Fever EENTM: Absent: Blurred Vision Respiratory: Absent: Cough, Shortness of Breath Cardiac: Absent: Chest Pain, Edema, Palpitations Abdominal: Absent: Nausea, Vomiting Genitourinary: Absent: Urgency, Frequency Musculoskeletal: Absent: Joint Pain, Back Pain Neurological: Present: Tremors Skin: Absent: Rash, Bruising Misc: All systems neg except as marked Immunizations: IMMUNIZATION HX Immunizations Up to Date Yes History of Influenza Vaccine Yes Hx Pneumococcal Vaccination Yes Allergies/Adverse Reactions: Allergies Allergy/AdvReac Type Severity Reaction Status Date / Time Sulfa (Sulfonamide AdvReac Mild MAKES HER Verified 08/16/18 17:31 Antibiotics) "LOOPY" Home Medications: HOME MEDICATIONS Nitroglycerin 0.4 mg SUBLINGUAL Q5M PRN 06/25/13 [Last Taken Unknown] Omeprazole [Prilosec] 40 mg PO DAILY 06/25/13 [Last Taken Unknown] glipiZIDE [Glipizide Xl] 2.5 mg PO DAILY 06/25/13 [Last Taken Unknown] Rosuvastatin Calcium [Crestor] 10 mg PO DAILY 09/12/16 [Last Taken Unknown] Mirtazapine 7.5 mg PO HS 11/07/16 [Last Taken Unknown] Apixaban [Eliquis] 2.5 mg PO BID #60 tab 11/10/16 [Last Taken Unknown] acetaminophen 325 mg tablet 650 mg PO Q6H PRN tab 04/19/18 [Last Taken Unknown] acetaminophen ER 650 mg tablet,extended release 650 mg PO Q8H 04/19/18 [Last Taken Unknown] alprazolam 0.25 mg tablet 0.125 mg PO BID tab 04/19/18 [Last Taken Unknown] cetirizine 10 mg tablet 10 mg PO DAILY tab 04/19/18 [Last Taken Unknown] peg 400-propylene glycol (PF) 0.4 %-0.3 % eye drops in a dropperette 1 drp OP QID 04/19/18 [Last Taken Unknown] blood sugar diagnostic strips See Dose Instructions .ROUTE .MEDSUPPLY #20 ea 05/25/18 [Last Taken Unknown] cholecalciferol (vitamin D3) 2,000 unit capsule 2,000 unit PO DAILY 05/25/18 [Last Taken Unknown] furosemide 20 mg tablet 20 mg PO DAILY 05/25/18 [Last Taken Unknown] metoprolol tartrate 25 mg tablet 25 mg PO BID 05/25/18 [Last Taken Unknown] nystatin 100,000 unit/gram topical powder 1 applic TP BID 05/25/18 [Last Taken Unknown] potassium chloride ER 20 mEq tablet,extended release(part/cryst) 20 meq PO QMWF tab 05/25/18 [Last Taken Unknown] risperidone 0.25 mg tablet 0.125 mg PO DAILY tab 05/25/18 [Last Taken Unknown] sertraline 100 mg tablet 100 mg PO DAILY 05/25/18 [Last Taken Unknown] sertraline 50 mg tablet 50 mg PO DAILY tab 05/25/18 [Last Taken Unknown] vitamin E topical cream 1 applic TP TID PRN 05/25/18 [Last Taken Unknown] Exam - Exam Vital Signs: Vital Signs - Last Taken Temp 36.9 C 08/17/18 03:00 Pulse 95 08/17/18 03:00 Resp 20 08/17/18 03:00 BP 127/49 08/17/18 03:00 Pulse Ox 98 08/17/18 03:00 Constitutional: Present: Alert - AAO x 1 ENT Exam: Present: hearing grossly normal Eye Exam: bilateral eye: normal inspection, PERRL, EOMI Neck: Present: supple Respiratory: Present: decreased breath sounds Cardiovascular/Chest: Present: regular rate, rhythm, no JVD, no murmur Abdomen: Present: Normal bowel sounds, soft, nontender, nondistended Extremity: Present: no calf tenderness, pedal edema Diagnostic Studies: Abnormal Lab Results 08/16/18 08/16/18 08/16/18 Range/Units 17:37 17:43 17:43 WBC 10.9 H (4.0-10.5) K/mm3 Hgb 12.1 L (12.5-16.0) gm/dL MCHC 31.5 L (32-36) g/dl RDW 15.1 H (11.5-14.0) % Immature Gran % (Auto) 0.60 H (0.001-0.429) % Immature Gran # (Auto) 0.07 H (0.000-0.0310) K/mm3 Neutrophils % 78.9 H (42-75.0) % Lymphocytes % 16.3 L (20-51) % Neutrophils # 8.6 H (1.3-6.0) K/mm3 pCO2 30.8 L (32.0-45.0) mmHg pO2 147.4 H (83.0-108.0) mmHg HCO3 15.9 L (21.0-28.0) mmol/L Total CO2 16.9 L (19.0-24.0) mmol/L Base Excess -8.8 L (-2.0-3.0) mmol/L ABG pH 7.33 L (7.35-7.45) ABG O2 Sat (Measured) 98.8 H (94.0-98.0) % Plasma Sodium 144 H (130-142) mmol/L Carbon Dioxide 19.4 L (24-32.6) mmol/L Anion Gap 21.0 H (6.8-13.8) mmol/L Creatinine 1.57 H (0.4-1.4) mg/dL Est GFR (Non-Af Amer) 33 L D (60-130) mL/min Random Glucose 210 H (70-110) mg/dL Lactic Acid, Venous (0.4-2.0) mmol/L ALT 18 L (19-67) U/L C-Reactive Prot, Quant 5.3 H (0.0-0.9) mg/dL B-Natriuretic Peptide 633 H (5-550) pg/mL Albumin 3.3 L (3.4-5.0) gm/dl Urine Protein (NEGATIVE) mg/dL Urine Blood (NEGATIVE) /ul Prot Sulfosalicylic Acd (0) mg/dL Ur Leukocyte Esterase (NEGATIVE) /ul Urine RBC (0-5) /hpf Urine WBC (0-5) /hpf Urine Bacteria (NONE) 08/16/18 08/16/18 Range/Units 17:43 19:13 WBC (4.0-10.5) K/mm3 Hgb (12.5-16.0) gm/dL MCHC (32-36) g/dl RDW (11.5-14.0) % Immature Gran % (Auto) (0.001-0.429) % Immature Gran # (Auto) (0.000-0.0310) K/mm3 Neutrophils % (42-75.0) % Lymphocytes % (20-51) % Neutrophils # (1.3-6.0) K/mm3 pCO2 (32.0-45.0) mmHg pO2 (83.0-108.0) mmHg HCO3 (21.0-28.0) mmol/L Total CO2 (19.0-24.0) mmol/L Base Excess (-2.0-3.0) mmol/L ABG pH (7.35-7.45) ABG O2 Sat (Measured) (94.0-98.0) % Plasma Sodium (130-142) mmol/L Carbon Dioxide (24-32.6) mmol/L Anion Gap (6.8-13.8) mmol/L Creatinine (0.4-1.4) mg/dL Est GFR (Non-Af Amer) (60-130) mL/min Random Glucose (70-110) mg/dL Lactic Acid, Venous 3.1 H* (0.4-2.0) mmol/L ALT (19-67) U/L C-Reactive Prot, Quant (0.0-0.9) mg/dL B-Natriuretic Peptide (5-550) pg/mL Albumin (3.4-5.0) gm/dl Urine Protein 100 H (NEGATIVE) mg/dL Urine Blood 250 H (NEGATIVE) /ul Prot Sulfosalicylic Acd 3+ H (0) mg/dL Ur Leukocyte Esterase 100 H (NEGATIVE) /ul Urine RBC 10-25 H (0-5) /hpf Urine WBC 5-10 H (0-5) /hpf Urine Bacteria 2+ H (NONE) Laboratory Results WBC 10.9 K/mm3 (4.0-10.5) H 08/16/18 17:43 RBC 4.24 M/mm3 (4.2-5.4) 08/16/18 17:43 Hgb 12.1 gm/dL (12.5-16.0) L 08/16/18 17:43 Hct 38.4 % (37.0-47.0) 08/16/18 17:43 MCV 90.6 fl (78-100) 08/16/18 17:43 MCH 28.5 pg (27-31) 08/16/18 17:43 MCHC 31.5 g/dl (32-36) L 08/16/18 17:43 RDW 15.1 % (11.5-14.0) H 08/16/18 17:43 Plt Count 278 K/mm3 (150-450) 08/16/18 17:43 MPV 9.6 fl (8-12.5) 08/16/18 17:43 Immature Gran % (Auto) 0.60 % (0.001-0.429) H 08/16/18 17:43 Immature Gran # (Auto) 0.07 K/mm3 (0.000-0.0310) H 08/16/18 17:43 Neutrophils % 78.9 % (42-75.0) H 08/16/18 17:43 Lymphocytes % 16.3 % (20-51) L 08/16/18 17:43 Monocytes % 3.0 % (0.0-9) 08/16/18 17:43 Eosinophils % 0.8 % (0.0-3.0) 08/16/18 17:43 Basophils % 0.4 % (0.0-1.0) 08/16/18 17:43 Nucleated RBC % 0.0 k/mm3 (0-1) 08/16/18 17:43 Neutrophils # 8.6 K/mm3 (1.3-6.0) H 08/16/18 17:43 Lymphocytes # 1.78 k/mm3 (1.5-3.5) 08/16/18 17:43 Monocytes # 0.3 k/mm3 (0.0-1.0) 08/16/18 17:43 Eosinophils # 0.1 k/mm3 (0.0-0.7) 08/16/18 17:43 Absolute Basophils 0.0 k/mm3 (0.0-0.1) 08/16/18 17:43 pCO2 30.8 mmHg (32.0-45.0) L 08/16/18 17:37 pO2 147.4 mmHg (83.0-108.0) H 08/16/18 17:37 HCO3 15.9 mmol/L (21.0-28.0) L 08/16/18 17:37 Total CO2 16.9 mmol/L (19.0-24.0) L 08/16/18 17:37 Base Excess -8.8 mmol/L (-2.0-3.0) L 08/16/18 17:37 ABG pH 7.33 (7.35-7.45) L 08/16/18 17:37 ABG O2 Sat (Measured) 98.8 % (94.0-98.0) H 08/16/18 17:37 Sodium 142 mmol/L (132-142) 08/16/18 17:43 Plasma Sodium 144 mmol/L (130-142) H 08/16/18 17:43 Potassium 4.4 mmol/L (3.4-4.6) 08/16/18 17:43 Chloride 106 mmol/L (97-106) 08/16/18 17:43 Carbon Dioxide 19.4 mmol/L (24-32.6) L 08/16/18 17:43 Anion Gap 21.0 mmol/L (6.8-13.8) H 08/16/18 17:43 BUN 22 mg/dL (3-23) 08/16/18 17:43 Creatinine 1.57 mg/dL (0.4-1.4) H 08/16/18 17:43 Est GFR (Non-Af Amer) 33 mL/min (60-130) L D 08/16/18 17:43 BUN/Creatinine Ratio 14.0 (9.0-21.6) 08/16/18 17:43 Random Glucose 210 mg/dL (70-110) H 08/16/18 17:43 Lactic Acid, Venous 1.7 mmol/L (0.4-2.0) 08/16/18 20:27 Calcium 8.9 mg/dL (7.9-10.9) 08/16/18 17:43 Calcium Adj for Albumin 9.1 mg/dL (8.4-10.2) 08/16/18 17:43 Total Bilirubin 0.3 mg/dL (0.0-1.1) 08/16/18 17:43 AST 21 U/L (0-48) 08/16/18 17:43 ALT 18 U/L (19-67) L 08/16/18 17:43 Alkaline Phosphatase 103 U/L (50-170) 08/16/18 17:43 Troponin I Less than 0.017 ng/mL (0.00-0.10) 08/16/18 17:43 C-Reactive Prot, Quant 5.3 mg/dL (0.0-0.9) H 08/16/18 17:43 B-Natriuretic Peptide 633 pg/mL (5-550) H 08/16/18 17:43 Total Protein 7.7 gm/dL (6.2-8.2) 08/16/18 17:43 Albumin 3.3 gm/dl (3.4-5.0) L 08/16/18 17:43 Procalcitonin 0.30 ng/mL (0.05-0.50) 08/16/18 17:43 Urine Color Pale yellow 08/16/18 19:13 Urine Appearance Cloudy (CLEAR) 08/16/18 19:13 Urine pH 6.0 pH (5.0-7.0) 08/16/18 19:13 Ur Specific [place] >=1.030 SP.GR. (1.005-1.010) 08/16/18 19:13 Urine Protein 100 mg/dL (NEGATIVE) H 08/16/18 19:13 Urine Glucose (UA) Negative mg/dL (NEGATIVE) 08/16/18 19:13 Urine Ketones Negative mg/dL (NEGATIVE) 08/16/18 19:13 Urine Blood 250 /ul (NEGATIVE) H 08/16/18 19:13 Urine Nitrate Negative (NEGATIVE) 08/16/18 19:13 Urine Bilirubin Negative mg/dl (NEGATIVE) 08/16/18 19:13 Prot Sulfosalicylic Acd 3+ mg/dL (0) H 08/16/18 19:13 Urine Urobilinogen Normal EU/dl (NORMAL) 08/16/18 19:13 Ur Leukocyte Esterase 100 /ul (NEGATIVE) H 08/16/18 19:13 Urine RBC 10-25 /hpf (0-5) H 08/16/18 19:13 Urine WBC 5-10 /hpf (0-5) H 08/16/18 19:13 Ur Epithelial Cells 0-5 /hpf (0-5) 08/16/18 19:13 Urine Bacteria 2+ (NONE) H 08/16/18 19:13 Urine Culture Comments Culture to follow 08/16/18 19:13 Assessment/Plan - Narrative Narrative: We will continue with her home medications and present management - Assessment/Plan (1) Pneumonia Assessment: due to the acuteness of the history- will treat for possible aspiration pneumonia. consider SDO but unlikely. will change her IV antibiotics to IV Zosyn and add Azithromyicn. Problem: Acute Qualifiers: Pneumonia type: aspiration pneumonia Laterality: bilateral Lung location: lower lobe of lung (2) UTI (urinary tract infection) Assessment: continue with IV antibiotics and await C & S. Problem: Acute Qualifiers: Urinary tract infection type: acute cystitis Hematuria presence: with hematuria Qualified Code(s): N30.01 - Acute cystitis with hematuria (3) Sepsis Assessment: with pneumonia and UTI as sources of her infection. continue with IVF nd IV antibiotics. Problem: Acute Qualifiers: Sepsis type: sepsis due to unspecified organism Qualified Code(s): A41.9 - Sepsis, unspecified organism (4) Acid-base imbalance Assessment: Anion Gap Metabolic acidosis due to lactic acidosis and respiratory acidosis likely to pneumonia. Lactic acidosis resolved. continue with present management Problem: Acute (5) Lactic acidosis Assessment: likely due to sepsis with pneumonia and hypoxemia Problem: Resolved (6) Diabetes Problem: Chronic Qualifiers: Diabetes mellitus type: type 2 (7) Dementia Problem: Chronic Qualifiers: Dementia type: Alzheimer's disease (8) History of CVA (cerebrovascular accident) Problem: Chronic
[2018-08-17] MEDS: PIPERACILLIN SODIUM/TAZOBACTAM 3.375 GM in DEXTROSE 5 % IN WATER 100 ML IV SCH ×6 (08:33→23:19)
[2018-08-17] MEDS: POLYVINYL ALCOHOL 150 DROP BTL OP SCH ×4 (08:46→21:27)
[2018-08-17] MEDS: FUROSEMIDE 20 MG TABLET PO SCH (08:47)
[2018-08-17] MEDS: APIXABAN 2.5 MG TABLET PO SCH ×2 (08:47→21:29)
[2018-08-17] MEDS: PANTOPRAZOLE SODIUM 40 MG TABLET.EC PO SCH (08:49)
[2018-08-17] MEDS: METOPROLOL TARTRATE 25 MG TABLET PO SCH ×2 (08:49→21:29)
[2018-08-17] MEDS: SERTRALINE HCL 50 MG TABLET PO SCH (08:50)
[2018-08-17] MEDS: risperiDONE 0.25 MG TABLET PO SCH (08:50)
[2018-08-17] MEDS: CHOLECALCIFEROL 1,000 UNIT CAPSULE PO SCH (08:50)
[2018-08-17] MEDS: AZITHROMYCIN 250 MG TABLET PO SCH (08:51)
[2018-08-17] MEDS: SERTRALINE HCL 100 MG TABLET PO SCH (08:52)
[2018-08-17] MEDS: ALPRAZolam 0.25 MG TABLET PO SCH ×2 (10:54→21:34)
[2018-08-17] MEDS: NYSTATIN 15 APPL BTL TP SCH ×2 (10:55→21:31)
[2018-08-17] MEDS: glipiZIDE 2.5 MG TAB.SR.24H PO SCH (10:56)
[2018-08-17] MEDS ORDERED: ROSUVASTATIN CALCIUM 10 MG TABLET PO SCH (21:00)
[2018-08-18] MEDS: NORMAL SALINE 1,000 ML IV PRN ×2 (00:15→08:30)
[2018-08-18 05:15] LABS: Hemoglobin 10.3 gm/dL (12.5-16.0); Mean Cell Volume 93.7 fl (78-100); Mean Corpuscular Hemoglobin 28.4 pg (27-31); Mean Corpuscular Hgb Conc 30.3 g/dl (32-36); Mean Platelet Volume 9.1 fl (8-12.5); Neutrophil # 4.6 K/mm3 (1.3-6.0); Neutrophil % 71.5 % (42-75.0); Platelet Count 207 K/mm3 (150-450); Red Blood Count 3.63 M/mm3 (4.2-5.4); Red Cell Distribution Width 15.5 % (11.5-14.0); White Blood Count 6.4 K/mm3 (4.0-10.5)
[2018-08-18 05:24] LABS: Anion Gap 14.2 mmol/L (6.8-13.8); BUN/Creatinine Ratio 10.1 (9.0-21.6); Calcium * 8.3 mg/dL (7.9-10.9); Carbon Dioxide 22.9 mmol/L (24-32.6); Potassium 4.1 mmol/L (3.4-4.6)
[2018-08-18] MEDS: PIPERACILLIN SODIUM/TAZOBACTAM 3.375 GM in DEXTROSE 5 % IN WATER 100 ML IV SCH ×2 (06:42)
[2018-08-18] MEDS: PANTOPRAZOLE SODIUM 40 MG TABLET.EC PO SCH (06:43)
[2018-08-18] MEDS ORDERED: POTASSIUM CHLORIDE 20 MEQ TABLET.SA PO SCH (09:00)
[2018-08-18] MEDS: POLYVINYL ALCOHOL 150 DROP BTL OP SCH ×2 (09:58→13:43)
[2018-08-18] MEDS: risperiDONE 0.25 MG TABLET PO SCH (09:58)
[2018-08-18] MEDS: glipiZIDE 2.5 MG TAB.SR.24H PO SCH (09:59)
[2018-08-18] MEDS: AZITHROMYCIN 250 MG TABLET PO SCH (09:59)
[2018-08-18] MEDS: CHOLECALCIFEROL 1,000 UNIT CAPSULE PO SCH (09:59)
[2018-08-18] MEDS: FUROSEMIDE 20 MG TABLET PO SCH (09:59)
[2018-08-18] MEDS: SERTRALINE HCL 100 MG TABLET PO SCH (09:59)
[2018-08-18] MEDS: APIXABAN 2.5 MG TABLET PO SCH (09:59)
[2018-08-18] MEDS: NYSTATIN 15 APPL BTL TP SCH (10:00)
[2018-08-18] MEDS: METOPROLOL TARTRATE 25 MG TABLET PO SCH (10:00)
[2018-08-18] MEDS: SERTRALINE HCL 50 MG TABLET PO SCH (10:01)
[2018-08-18] MEDS: ALPRAZolam 0.25 MG TABLET PO SCH (10:05)
--- NOTE | 2018-08-18 11:42 | DS ---
(1) Pneumonia Problem: Acute Qualifiers: Pneumonia type: aspiration pneumonia Laterality: bilateral Lung location: lower lobe of lung (2) UTI (urinary tract infection) Diagnosis(s): E.Coli Problem: Acute Qualifiers: Urinary tract infection type: acute cystitis Hematuria presence: with hematuria Qualified Code(s): N30.01 - Acute cystitis with hematuria (3) Sepsis Problem: Acute Qualifiers: Sepsis type: sepsis due to unspecified organism Qualified Code(s): A41.9 - Sepsis, unspecified organism (4) Acid-base imbalance Problem: Acute (5) Lactic acidosis Problem: Resolved (6) Diabetes Problem: Chronic Qualifiers: Diabetes mellitus type: type 2 (7) Dementia Problem: Chronic Qualifiers: Dementia type: Alzheimer's disease (8) History of CVA (cerebrovascular accident) Problem: Chronic Description of Stay: Danis Perales 88-year-old white female, resident of the [facility], with past medical history of diabetes mellitus type 2, dementia of Alzheimer's type, hypertension, who was admitted on 08/16/2018 because of shortness of breath and oxygen desaturation. The patient is a poor historian. I did get a call from the snf last night saying that the patient was shaking tremendously and her lips and her fingers were turning blue. Her oxygen saturation was only 75% despite 10 L of oxygen. I told the snf to send her to the emergency room immediately and she was found to have an elevated white blood cell count, elevated lactic acid, infiltrates in her chest x-ray and patient was admitted for possible sepsis with pneumonia. Her ABG showed AG metabolic acidosis and respiratory acidosis. Her UA showed UTI. She was started on IV antibiotics and IV fluids. on the morning after her admission, the patient says that the only thing she can remember was that she walked to the dining room to eat her supper and after she sat down and drank water she started shaking and then she remembers her being wheeled out to the hospital. She was started on IV Zosyn and kept on azithromycin for aspiration pneumonia. ST evaluation showed she was aspirating and she was changed to mechanical soft diet and nectar thickened fluid. She has been afebrile for the last 48 hours and her WBC is back to normal. She is saturating well on RA. She is stable to be discharged back to the [facility] and will keep her on Augmentin and levaquin. Procedures Performed: none Results and Findings: Pending Mircobiology Results 08/16/18 18:38 Blood Blood Culture - Preliminary NO GROWTH 24 HOURS 08/16/18 17:43 Blood Blood Culture - Preliminary NO GROWTH 24 HOURS Lab Pending Results 08/16/18 17:37: pCO2 30.8 L, pO2 147.4 H, HCO3 15.9 L, Total CO2 16.9 L, Base Excess -8.8 L, ABG pH 7.33 L, ABG O2 Sat (Measured) 98.8 H 08/16/18 17:43: WBC 10.9 H, RBC 4.24, Hgb 12.1 L, Hct 38.4, MCV 90.6, MCH 28.5, MCHC 31.5 L, RDW 15.1 H, Plt Count 278, MPV 9.6, Immature Gran % (Auto) 0.60 H, Immature Gran # (Auto) 0.07 H, Neutrophils % 78.9 H, Lymphocytes % 16.3 L, Monocytes % 3.0, Eosinophils % 0.8, Basophils % 0.4, Nucleated RBC % 0.0, Neutrophils # 8.6 H, Lymphocytes # 1.78, Monocytes # 0.3, Eosinophils # 0.1, Absolute Basophils 0.0 08/16/18 17:43: Sodium 142, Plasma Sodium 144 H, Potassium 4.4, Chloride 106, Carbon Dioxide 19.4 L, Anion Gap 21.0 H, BUN 22, Creatinine 1.57 H, Est GFR (Non-Af Amer) 33 L D, BUN/Creatinine Ratio 14.0, Random Glucose 210 H, Calcium 8.9, Calcium Adj for Albumin 9.1, Total Bilirubin 0.3, AST 21, ALT 18 L, Alkaline Phosphatase 103, Troponin I Less than 0.017, C-Reactive Prot, Quant 5.3 H, B-Natriuretic Peptide 633 H, Total Protein 7.7, Albumin 3.3 L 08/16/18 17:43: Procalcitonin 0.30 08/16/18 17:43: Lactic Acid, Venous 3.1 H* 08/16/18 19:13: Urine Color Pale yellow, Urine Appearance Cloudy, Urine pH 6.0, Ur Specific [place] >=1.030, Urine Protein 100 H, Urine Glucose (UA) Negative, Urine Ketones Negative, Urine Blood 250 H, Urine Nitrate Negative, Urine Bilirubin Negative, Prot Sulfosalicylic Acd 3+ H, Urine Urobilinogen Normal, Ur Leukocyte Esterase 100 H, Urine RBC 10-25 H, Urine WBC 5-10 H, Ur Epithelial Cells 0-5, Urine Bacteria 2+ H, Urine Culture Comments Culture to follow 08/16/18 20:27: Lactic Acid, Venous 1.7 08/18/18 05:13: WBC 6.4 D, RBC 3.63 L, Hgb 10.3 L, Hct 34.0 L, MCV 93.7, MCH 28.4, MCHC 30.3 L, RDW 15.5 H, Plt Count 207, MPV 9.1, Immature Gran % (Auto) 0.50 H, Immature Gran # (Auto) 0.03, Neutrophils % 71.5, Lymphocytes % 15.2 L, Monocytes % 10.0 H, Eosinophils % 2.3, Basophils % 0.5, Nucleated RBC % 0.0, Neutrophils # 4.6, Lymphocytes # 0.97 L, Monocytes # 0.6, Eosinophils # 0.2, Absolute Basophils 0.0 08/18/18 05:13: Sodium 145 H, Plasma Sodium 146 H, Potassium 4.1, Chloride 112 H, Carbon Dioxide 22.9 L, Anion Gap 14.2 H, BUN 14, Creatinine 1.39, Est GFR (Non-Af Amer) 38 L, BUN/Creatinine Ratio 10.1, Random Glucose 167 H, Calcium 8.3 Discharge Location: [facility] Disposition: Intermediate Care Facility ICF Condition: Stable Level of Care: ICF Discharge Activity: Activity as tolerated Discharge Diet: Consistent carbs - mechanical soft fiet, nectar thickened fluid, may take oral meds with apple sauce Additional Patient Instructions (free text): Speech Therapy Eval and Treat, Part B. Prescriptions (Any new or edited meds): Amox Tr/Potassium Clavulanate [Augmentin 875-125 Tablet] 875 mg PO Q12H 7 Days #14 tab Levofloxacin [Levaquin] 750 mg PO DAILY 5 Days #5 tab Complete Home Medications List: Complete Home Medication List: Nitroglycerin 0.4 mg SUBLINGUAL Q5M PRN 06/25/13 Omeprazole [Prilosec] 40 mg PO DAILY 06/25/13 glipiZIDE [Glipizide Xl] 2.5 mg PO DAILY 06/25/13 Rosuvastatin Calcium [Crestor] 10 mg PO DAILY 09/12/16 Mirtazapine 7.5 mg PO HS 11/07/16 Apixaban [Eliquis] 2.5 mg PO BID #60 tab 11/10/16 acetaminophen 325 mg tablet 650 mg PO Q6H PRN tab 04/19/18 acetaminophen ER 650 mg tablet,extended release 650 mg PO Q8H 04/19/18 alprazolam 0.25 mg tablet 0.125 mg PO BID tab 04/19/18 cetirizine 10 mg tablet 10 mg PO DAILY tab 04/19/18 peg 400-propylene glycol (PF) 0.4 %-0.3 % eye drops in a dropperette 1 drp OP QID 04/19/18 blood sugar diagnostic strips See Dose Instructions .ROUTE .MEDSUPPLY #20 ea 05/25/18 cholecalciferol (vitamin D3) 2,000 unit capsule 2,000 unit PO DAILY 05/25/18 furosemide 20 mg tablet 20 mg PO DAILY 05/25/18 metoprolol tartrate 25 mg tablet 25 mg PO BID 05/25/18 nystatin 100,000 unit/gram topical powder 1 applic TP BID 05/25/18 potassium chloride ER 20 mEq tablet,extended release(part/cryst) 20 meq PO QMWF tab 05/25/18 risperidone 0.25 mg tablet 0.125 mg PO DAILY tab 05/25/18 sertraline 100 mg tablet 100 mg PO DAILY 05/25/18 sertraline 50 mg tablet 50 mg PO DAILY tab 05/25/18 vitamin E topical cream 1 applic TP TID PRN 05/25/18 Amox Tr/Potassium Clavulanate [Augmentin 875-125 Tablet] 875 mg PO Q12H 7 Days #14 tab 08/18/18 Levofloxacin [Levaquin] 750 mg PO DAILY 5 Days #5 tab 08/18/18
[2018-08-18 13:47] VITALS: BP 132/74
== END 2018-08-18 14:15 | DRG 871 ==
LOC: ER 17:14 → MS 19:31
PROVIDERS: ADMIT Internal Medicine; ATTEND Internal Medicine
DX: F32.9 Major depressive disorder, single episode, unspecified; J69.0 Pneumonitis due to inhalation of food and vomit; Z88.2 Allergy status to sulfonamides; Z79.01 Long term (current) use of anticoagulants; F41.9 Anxiety disorder, unspecified; E78.5 Hyperlipidemia, unspecified; F79 Unspecified intellectual disabilities; G30.9 Alzheimer's disease, unspecified; A41.9 Sepsis, unspecified organism; F02.80 Dementia in other diseases classified elsewhere, unspecified severity, without behavioral disturbance, psychotic disturbance, mood disturbance, and anxiety; E87.4 Mixed disorder of acid-base balance; K21.9 Gastro-esophageal reflux disease without esophagitis; B96.20 Unspecified Escherichia coli [E. coli] as the cause of diseases classified elsewhere; N30.01 Acute cystitis with hematuria; Z79.84 Long term (current) use of oral hypoglycemic drugs; Z82.49 Family history of ischemic heart disease and other diseases of the circulatory system; I10 Essential (primary) hypertension; Z86.73 Personal history of transient ischemic attack (TIA), and cerebral infarction without residual deficits; E87.2 Acidosis; E11.9 Type 2 diabetes mellitus without complications
CPT/HCPCS: 36415; 36600; 71010; 71045; 74230; 80048; 80053; 81001; 82803; 83519; 83605; 83880; 84145; 84484; 85025; 86140; 87040; 87077; 87081; 87086; 87186; 92526; 92610; 92611; 93005; 94640; 94664; 94760; 96361; 96365; 96367; 97110; 97116; 97161; 97530; 99285